=== PATIENT | male | born 1955 | race Caucasian/White ===

== ENCOUNTER 2017-07-05 17:08 | Inpatient (IN) | payer MEDICAID, OTHER ==
[2017-07-05] MEDS ORDERED: NS 0.9% 1000 ML*IV.FLUID IV ONE (17:19)
[2017-07-05] MEDS ORDERED: metroNIDAZOLE IV 500 MG/100ML* 500 MG/100 ML BAG IVPB ONE (17:19)
[2017-07-05] MEDS ORDERED: Cefepime(*) 2 GM in NS 0.9% 50 ML* 50 ML IVPB ONE (17:19)
[2017-07-05 17:47] LABS: Add Diff/Slide Review? Slide Review Added; Comments Flag Yes; Hematocrit 39 % (42-52); Hemoglobin 11.8 g/dl (14.0-18.0); Mean Corpuscular HGB Conc 31 g/dl (31-36); Mean Corpuscular Hemoglobin 27 pg (27-31); Mean Corpuscular Volume 87 fL (80-94); Mean Platelet Volume 9 um3 (7.4-10.4); Red Blood Count 4.45 10^6/ul (4.0-5.4); Red Cell Distribution Width 21 % (10.5-15); White Blood Count 14.9 10^3/ul (3.5-10.8)
[2017-07-05] MEDS ORDERED: Vancomycin(*) 1,000 MG VIAL IVPB SCH (18:00)
[2017-07-05 18:01] LABS: Immature Granulocytes 16 % (0-9); Macrocytosis 1+; Microcytosis 1+; Neutrophil % 74 % (38-83); Polychromasia 1+
[2017-07-05 18:03] LABS: ALT 24 U/L (7-52); AST 57 U/L (13-39); Albumin 2.6 g/dL (3.2-5.2); Alkaline Phosphatase 110 U/L (34-104); BUN/Creatinine Ratio 30.9 (8-20); Blood Urea Nitrogen 47 mg/dL (6-24); CO2 Carbon Dioxide 24 mmol/L (22-32); Calcium 8.6 mg/dL (8.6-10.3); Chloride 107 mmol/L (101-111); EGFR African American 59.7 (>60); EGFR Non-African American 46.4 (>60); Globulin 4.3 g/dL (2-4); Glucose 128 mg/dL (70-100); Sodium 140 mmol/L (133-145); Total Protein 6.9 g/dL (6.4-8.9)
[2017-07-05 18:04] LABS: Anion Gap 9 mmol/L (2-11); Potassium 6.1 mmol/L (3.5-5.0)
[2017-07-05 18:05] LABS: Troponin I 0.42 ng/mL (<0.04)
[2017-07-05] MEDS ORDERED: Dextrose 50% Syringe 50 ML* 25 GM/50 ML SYRINGE IV PUSH ONE (18:09)
[2017-07-05] MEDS ORDERED: Insulin REGULAR(*) 1 UNITS UNIT IV PUSH ONE (18:09)
[2017-07-05] MEDS ORDERED: Calcium Gluconate INJ* 1 GM in NS 0.9% 100 ML* 100 ML IVPB ONE (18:09)
[2017-07-05] MEDS ORDERED: fentaNYL* 50 MCG/ML 2 ML VIAL (100 MCG VIAL) IV SLOW PU ONE (18:24)
[2017-07-05 18:27] LABS: Erythrocyte Sed Rate 60 mm/Hr (0-20)
--- NOTE | 2017-07-05 19:06 | RAD ---
INDICATION: Sepsis COMPARISON: None TECHNIQUE: An AP portable view obtained at 1846 hours is submitted. FINDINGS: Bones/Soft Tissues: There are no acute bony findings. Cardiomediastinal: The cardiomediastinal silhouette is normal. There is no mediastinal shift. Lungs: There are no infiltrates. There is approximately a 20% right-sided pneumothorax Pleura: There are no pleural effusions. Other: None IMPRESSION: RIGHT-SIDED PNEUMOTHORAX.
[2017-07-05] MEDS ORDERED: Acetaminophen TAB* 325 MG PO PRN ×2 (19:34→23:33)
[2017-07-05] MEDS ORDERED: Ondansetron INJ* 2 MG/ML VIAL IV PRN (19:34)
[2017-07-05] MEDS ORDERED: Sodium Polystyrene ORAL.SOL* 15 GM/60 ML BTL PO ONE (19:36)
[2017-07-05 20:00] LABS: Creatine Kinase 275 U/L (10-223)
[2017-07-05] MEDS ORDERED: Vancomycin(*) 1,000 MG - ED ONCE IVPB ONE ×2 (20:00)
[2017-07-05] MEDS ORDERED: Vancomycin per Pharmacy* NOTE FOLLOW UP SCH (20:00)
[2017-07-05 23:22] LABS: Urine Bacteria Absent (Absent); Urine Bilirubin Negative (Negative); Urine Glucose 1+(50 mg/dL) (Negative); Urine Nitrite Negative (Negative)
[2017-07-05] MEDS ORDERED: Thiamine IV* 100 MG/ML 2 ML VIAL IM ONE (23:33)
[2017-07-06] MEDS: Heparin VIAL(*) 5000 UNITS/ML VIAL (FIVE THOUSAND) SUBCUT SCH ×4 (00:07→22:16)
[2017-07-06] MEDS: NS 0.9% 1000 ML* 1,000 ML IV SCH ×2 (00:07→09:22)
[2017-07-06 00:15] LABS: Alcohol < 10 mg/dL (<10); Prealbumin < 3 mg/dL (18-38)
[2017-07-06 00:28] LABS: Benzodiazepine Urine Screen None Detected (None Detect)
[2017-07-06 00:30] LABS: TSH (Thyroid Stimulating Horm) 1.83 mcIU/mL (0.34-5.60)
--- NOTE | 2017-07-06 02:36 | HP ---
HOSPITAL MEDICINE HISTORY AND PHYSICAL: DATE OF ADMISSION: 07/05/17 PRIMARY CARE PHYSICIAN: None. ATTENDING PHYSICIAN: Jessica Raymond MD * (dictation provided by Nichole Moses NP) CHIEF COMPLAINT: Found slumped in chair. HISTORY OF PRESENT ILLNESS: Mr. Lion is a 62-year-old male who has no apparent past medical history who presents today to the hospital from home when found slumped over in his chair by a friend. Mr. Lion is alert. He appears oriented. He states that he has been a long-term alcoholic and he drinks 4 to 5 , 24-ounce beers per day. He reports being fairly heavy smoker during his life. He lives alone in apartment in [place]. He reports being unemployed, but previously working cleaning floors, etc. The patient has no acute complaint at this point and has no report of any problem at home. Per his report, he was just sitting in his chair because he was resting. It seems that his friend thought he could have been sitting in the chair for at least 3 days. When I asked the patient about his past medical history, he states his problem is his legs. He thinks his legs have been causing him problem for about 11 months. He states that "they told me to keep them clean," but when I asked why he has issues with his legs, he states "I don't know. I think they did this to me." He is unable to offer primary care physician. He does not have any family, but states he has 1 friend, Sky Bone who would be his healthcare proxy. In the emergency room, Mr. Lion had multiple abnormalities. He had extensive leg wounds to bilateral lower extremities all of which were covered with maggots. He has leukocytosis with white blood cell count of 14.9. He has a bandemia with bands of 16. His ESR is 60. His CRP is 128.20. He is afebrile. He is mildly tachycardic, mildly tachypneic, blood pressure is running 120/ 77. The patient has hyperkalemia with a potassium of 6.1. He has BUN of 47, creatinine 1.52, and glucose 128. Lactic acid 3.3. He has mildly elevated LFTs. His troponin is 0.42. His BNP is 5150. He has a chest x-ray, which shows a small right-sided pneumo. He is not hypoxic and is currently on room air. PAST MEDICAL HISTORY: 1. Alcohol abuse. 2. Nicotine use. MEDICATIONS: None. FAMILY HISTORY: The patient reports his mom and dad both are related to cancer. SOCIAL HISTORY: The patient is a continued smoker. He smoked for 47 years. He states he smokes much less than 1 pack per day now. He drinks beer daily about 4 to 5, 24-ounce cans per day. He smokes pot occasionally, but there is no report of other illicit drug use. He lives alone. He states his friend, Sky Bone would be his healthcare proxy. REVIEW OF SYSTEMS: Constitutional: No fevers, no chills. He does not report any unintended weight loss despite how cachectic he is. Cardiac: No chest pain. No edema. Respiratory: No cough, no hemoptysis, no shortness of breath. GI: No nausea, vomiting. Positive for intermittent diarrhea. No abdominal pain. : No gross hematuria or dysuria. Neuro: No focal weakness or sensory loss. Eyes: No visual complaints. ENT: No dysphagia. Musculoskeletal: No arthralgias or myalgias. Skin: Positive for rashes or lesions as per above. Psych: No report of depression or anxiety. PHYSICAL EXAMINATION GENERAL: Mr. Lion is sitting up in the bed. He appears in no acute distress. Actually, he is calm and cooperative to my examination. VITAL SIGNS: Temperature 97.6, pulse rate 114, respiratory rate 25, O2 saturation 100% on room air, blood pressure 120/77. LUNGS: Show rales bilaterally in the bases. No accessory muscle use and good aeration. HEART: S1, S2. No murmur, rub, or gallop and regular. ABDOMEN: Soft, nontender with bowel sounds positive x4. NEURO: He is alert. He is oriented x3. He has good movement in upper extremities. He has some limited range of motion while lying in the bed for his bilateral lower extremities secondary to pain and heaviness in the legs, but I cannot appreciate any focal deficits. His pupils are equal and reactive. His extraocular movements are intact. EXTREMITIES: Pulses not palpable but extremities are warm bilaterally. SKIN: The patient has multiple large deep ulcerations to bilateral lower extremities. The right lower extremity seems to be worse than the left. There is extensive maggots and flying insects around the wound. It is erythematous. LABORATORY DATA/DIAGNOSTIC STUDIES: Sodium 140, potassium 6.1, chloride 107, serum bicarbonate 24, BUN 47, creatinine 1.52, glucose 128. Lactic acid 3.3. Total bilirubin 2.6. Troponin 0.42. CRP 128.20. BNP 5150. INR 1.29, PTT 25.2 , fibrinogen 446. WBC 14.9, hemoglobin 11.8, hematocrit 39, platelet count 217 , bands 16. Chest x-ray shows right-sided pneumothorax. ASSESSMENT: Mr. Lion is a 62-year-old male with no known past medical history who presents today from home after being found slumped over in his chair with multiple problems including extensive bilateral lower extremity wounds likely secondary to poor vascular flow, sepsis, elevated troponin, pneumothorax and potential CHF. Our plans are for full admission to the hospital with expected length of stay would be greater than 2 days for the followin. Sepsis. The patient is likely septic from his bilateral lower extremity wounds. We plan to treat with cefepime and vancomycin. He has received 30 mL/ kg of IV fluids in the emergency room. His lactic acid is 3.3. We will be checking it appropriately in the next couple of hours. Blood cultures have been sent. 2. Bilateral lower extremity wounds. The patient has maggot covered wounds to both legs. Efforts have been started in the emergency room to clean those and we will need to continue through the night. Wound Care has been consulted. Surgery has been consulted regarding the patient's pneumothorax. They will be seeing the patient in consultation tomorrow and they can take a look at his legs at that point. I suspect that he has very poor blood flow to the legs and may ultimately need amputation. 3. Elevated troponin. The patient denies any pain at this point. Plan to repeat troponins x2. He will be monitored on the telemetry unit. He will go for a transthoracic echocardiogram tomorrow. 4. Hyperkalemia. Plan to prescribe Kayexalate now. He will be monitored on the telemetry unit. We will recheck in the a.m. 5. Elevated BUN and creatinine. The patient has unknown baseline. They are slightly elevated at 47 and 1.52 respectively. Plan to hydrate and recheck in a.m. I have added on urine FENa test. 6. Elevated LFTs. I suspect this is secondary to chronic alcoholism. I have added on LFTs for the a.m. 7. Question CHF. The patient has BNP of 5150. He does not appear to have CHF on exam. He is quite cachectic and does not have pulmonary edema on chest x- ray. Plan to check a transthoracic echocardiogram in the a.m. 8. Pneumothorax. The patient has a small pneumothorax noted on chest x-ray. I suspect this is likely secondary to ruptured bleb. The patient is not hypoxic on room air. He is complaining of no chest pain. I reviewed the case with Dr. Agosto. He has asked that we order another chest x-ray for the a.m. and follow up and that he will be seeing tomorrow. If he did develop any shortness of breath, etc., we would need to consider placing a chest tube or decompressing. 9. DVT prophylaxis with heparin subcu. 10. Disposition to the intensive care unit. TIME SPENT: Approximately 60 minutes was spent on the admission of this patient , more than half the time was spent with the patient at the bedside reviewing the events leading up to this hospitalization, performing the physical examination, and reviewing the plan of care. NICHOLE MOSES NP [id number]/[facility] #: [id number] ELIANA
[2017-07-06] MEDS ORDERED: Adenosine* 3 MG/ML VIAL ONE ×2 (03:50→03:55)
[2017-07-06] MEDS ORDERED: Succinylcholine* 20 MG/ML 10 ML VIAL ONE (04:04)
[2017-07-06] MEDS ORDERED: Etomidate* 2 MG/ML 20 ML VIAL (40 MG) ONE (04:09)
[2017-07-06] MEDS ORDERED: Diltiazem IV VIAL* 125 MG/25 ML VIAL ONE (04:10)
[2017-07-06] MEDS ORDERED: Propofol* 100 ML ONE (04:11)
--- NOTE | 2017-07-06 04:23 | PN ---
Progress Note - Progress Note Date of Service: 07/06/17 Note: Patient seen and examined with Nichole Moses NP. Agree with assessment and plan. In short, 62 yr old with PMHx of alcohol abuse who presented after being found unresponsive. Sepsis from lower ext wounds which also have maggots within the wounds. Hyperkalemia, renal failure, bumped troponin and lactic acidosis. Malnourished with severe protein calorie malnutrition. Patient in the ICU, IVFs with broad spectrum Abx.. Around 4 AM - was paged for SVT - no response with 6 mg and 12 mg of adenosine, patient then started gasping and became hypoxic. Was promptly intubated and sedated on propofol. Labs ordered as well as CXR. Social work. HR improved once intubated Dr. Li notified. Social work consulted to obtain HCP, Friend Sky Fofana contact info.
[2017-07-06 04:50] LABS: Hematocrit 25 % (42-52); Hemoglobin 7.7 g/dl (14.0-18.0); Mean Corpuscular HGB Conc 31 g/dl (31-36); Mean Corpuscular Hemoglobin 28 pg (27-31); Mean Corpuscular Volume 91 fL (80-94); Mean Platelet Volume 9 um3 (7.4-10.4); Red Blood Count 2.78 10^6/ul (4.0-5.4); Red Cell Distribution Width 21 % (10.5-15); White Blood Count 8.4 10^3/ul (3.5-10.8)
[2017-07-06 04:56] LABS: Add Diff/Slide Review? Slide Review Added; Comments Flag Yes
[2017-07-06 04:57] LABS: FIO2 100; Resp Rate 16
[2017-07-06 04:59] LABS: PCO2 Arterial 53 mmHg (35-45)
[2017-07-06] MEDS ORDERED: NS 0.9% 1000 ML* 1,000 ML IV ONE (05:02)
[2017-07-06 05:03] LABS: ALT 5 U/L (7-52); AST 16 U/L (13-39); Alkaline Phosphatase 22 U/L (34-104); Blood Urea Nitrogen 13 mg/dL (6-24); EGFR African American 619.8 (>60); Total Protein < 3.0 g/dL (6.4-8.9)
[2017-07-06 05:22] LABS: Troponin I 0.19 ng/mL (<0.04)
[2017-07-06] MEDS ORDERED: Metoprolol Tartrate IV* 1 MG/ML 5 ML VIAL ONE (05:34)
[2017-07-06] MEDS ORDERED: Sodium Bicarbonate 8.4% IV* 50 ML VIAL IV ONE (06:16)
[2017-07-06] MEDS ORDERED: NS 0.9% 1000 ML* 2,000 ML IV ONE ×2 (06:20)
[2017-07-06] MEDS ORDERED: Cefepime(*) 1 GM in NS 0.9% 50 ML* 50 ML IVPB SCH (06:30)
[2017-07-06] MEDS ORDERED: Cefepime 1 GM in Dextrose(*) 1 GM/50 ML BAG IV SCH (06:30)
[2017-07-06] MEDS ORDERED: fentaNYL* 50 MCG/ML 2 ML VIAL (100 MCG VIAL) IV ONE (07:15)
[2017-07-06] MEDS ORDERED: fentaNYL* 50 MCG/ML 2 ML VIAL (100 MCG VIAL) ONE (07:16)
--- NOTE | 2017-07-06 08:24 | RAD ---
Indication: Respiratory failure. Single frontal view of the chest performed at 0423 hours was reviewed. Comparison is made with previous exam dated July 05, 2017. Increasing size of right pneumothorax. Left lung field is clear. Cardiomegaly is noted. ET tube and nasogastric tube is in place. IMPRESSION: ENDOTRACHEAL TUBE IN APPROPRIATE LOCATION. INCREASING RIGHT-SIDED PNEUMOTHORAX.
--- NOTE | 2017-07-06 08:29 | RAD ---
INDICATION: Status post chest tube insertion COMPARISON: Chest x-ray July 05, 2017 TECHNIQUE: Single AP portable view of the chest was obtained. FINDINGS: Image quality is compromised due to the relative inferiority of a portable chest x-ray. The endotracheal tube tip terminates 4.2 cm above the scott. The gastric tube terminates below the level the diaphragm presumably overlying the gastric fundus. There is a small bore right-sided chest tube. The pneumothorax seen on the previous chest x-ray is not visible now. There is mild patchy density overlying the bilateral lungs and bilateral costophrenic angle blunting. IMPRESSION: 1. Appropriately positioned lines and tubes. 2. No visible pneumothorax status post small bore chest tube placement. 3. Patchy parenchymal densities are nonspecific that could be seen in the setting of pneumonia, pulmonary edema or adenitis.
[2017-07-06] MEDS ORDERED: Vancomycin(*) 1,000 MG in NS 0.9% 250 ML* 250 ML IVPB SCH (08:30)
[2017-07-06 08:31] LABS: Albumin 1.8 g/dL (3.2-5.2); BUN/Creatinine Ratio 35.2 (8-20); Calcium 6.6 mg/dL (8.6-10.3); EGFR African American 88.5 (>60); EGFR Non-African American 68.8 (>60); Globulin 2.9 g/dL (2-4); Potassium 3.3 mmol/L (3.5-5.0); Total Bilirubin 1.3 mg/dL (0.2-1.0); Total Protein 4.7 g/dL (6.4-8.9)
[2017-07-06] MEDS ORDERED: Perflutren Lipid Microsphere* 3 ML VIAL ONE (08:33)
--- NOTE | 2017-07-06 10:00 | ECHO ---
Patient: KAYCEE CORONEL [facility] Rec#: [id number] : 1955 Date: 07/06/2017 Age: 62y Height: 172.72 cm / 68.0 in Weight: 72.57 kg / 159.9 lbs Sex: M BSA: 1.86 Room#: ICU2 Admit Date#: 07/05/2017 Type: Inpatient Referring: Nichole Moses NP Reading: Chris Banks MD Crm Manager: Jennifer Baer [facility] Transthoracic Echocardiogram Indication: Elevated Troponins/Sepsis BP: 136/88 HR: 83 Rhythm: NSR Findings History: ETOH abuse,smoker, extensive leg wounds with maggot infectation. Currently sedated, intubated and mechanically ventilated. Technical Comments: The study is technically limited due to the patient's smoking history. Completed at 0930. The study is technically limited due to patient being intubated and on a ventilator. Left Ventricle: The left ventricular chamber size is normal. There is severely decreased left ventricular systolic function. The estimated ejection fraction is less than 20%. The assessment of diastolic function is non-diagnostic. The patient was unable to perform a Valsalva maneuver. Left Atrium: The left atrium is mildly dilated. Right Ventricle: Moderator Band present. The right ventricular cavity size is normal. The right ventricular global systolic function is moderately reduced. Right Atrium: The right atrium is mild to moderately dilated. Aortic Valve: The aortic valve is trileaflet. The aortic valve leaflets are mildly thickened. Systolic excursion of the aortic valve cusps is reduced. There is moderate aortic stenosis.The degree of may be underestimated due to low LV function The highest aortic valve velocity was obtained with the standard probe from the A5C view. Mitral Valve: The mitral valve leaflets appear normal. There is mild mitral regurgitation. There is no evidence of mitral stenosis. Tricuspid Valve: The tricuspid valve leaflets are normal. Unable to estimate the right ventricular systolic pressure. There is evidence that pulmonary hypertension may be underestimated. Pulmonic Valve: The pulmonic valve structure is not well visualized. Pericardium: The pericardium appears normal. Aorta: There is mild dilatation of the ascending aorta. The aortic arch is not well visualized. There is mild dilatation of the aortic root. Pulmonary Artery: The main pulmonary artery is not well visualized. Venous: Unable to accurately comment on the size collapsibility of the IVC as the patient in known to be on mechanical ventilation. Contrast: Definity was used to optimize study. Intravenous contrast was used to enhance endocardial border definition. Conclusions There is severely decreased left ventricular systolic function. The estimated ejection fraction is less than 20%. Severe Global hypokinesis The assessment of diastolic function is non-diagnostic. The right ventricular global systolic function is moderately reduced. Systolic excursion of the aortic valve cusps is reduced. There is moderate aortic stenosis.The degree of may be underestimated due to low LV function There is mild mitral regurgitation. Unable to estimate the right ventricular systolic pressure. The pericardium appears normal. Measurements Name Value Normal Range RVIDd (AP) 2D 2.7 cm (0.9 - 2.6) RVDdMajor (2D) 3.9 cm (2.2 - 4.4) RAd ISD 4CH 6.4 cm (3.4 - 4.9) RA (A4C)W 4.8 cm (2.9 - 4.6) IVSd (2D) 0.7 cm (0.6 - 1) LVPWd (2D) 1.1 cm (0.6 - 1) LVIDd (2D) 4.9 cm (3.6 - 5.4) LVIDs (2D) 4.7 cm - LV FS (2D) 5 % (25 - 45) Aortic Annulus 2.1 cm (1.4 - 2.6) Ao root diameter (2D) 3.7 cm (2.1 - 3.5) Ascending Ao 3.8 cm (2.1 - 3.4) LA dimension (AP) 2D 4.3 cm (2.3 - 3.8) LAd ISD 4CH 6.3 cm (2.9 - 5.3) LA ISD 4CH W 4.7 cm (2.5 - 4.5) Name Value Normal Range LA ESV SP 4CH (A/L) 96 ml - LA ESV SP 2CH (A/L) 66 ml - LA ESV BP (A/L) 80 ml - LA ESV BP (A/L) index 43.13 ml/m2 - LA ESV SP 4CH (MOD) 93 ml - LA ESV SP 2CH (MOD) 62 ml - Name Value Normal Range MV E-wave Vmax 0.9 m/sec - MV deceleration time 110 msec - MV A-wave Vmax 0.5 m/sec - MV E:A ratio 1.79 ratio - LV septal e' Vmax 0.05 m/sec - LV lateral e' Vmax 0.1 m/sec - LV E:e' septal ratio 18 ratio - LV E:e' lateral ratio 9 ratio - Name Value Normal Range AV Vmax 2.4 m/sec - AV VTI 44.2 cm - AV peak gradient 22.68 mmHg - AV mean gradient 12.39 mmHg - LVOT diameter 2 cm - LVOT Vmax 0.6 m/sec - LVOT VTI 12.9 cm - LVOT peak gradient 1.52 mmHg - LVOT mean gradient 0.8 mmHg - SV LVOT 42 ml - SCOOTER (continuity Vmax) 0.8 cm2 - SCOOTER (continuity VTI) 0.9 cm2 -
[2017-07-06 10:01] LABS: Magnesium 1.8 mg/dL (1.9-2.7); Phosphorus 3.4 mg/dL (2.5-5.0)
[2017-07-06] MEDS: Folic Acid TAB* 1 MG PO SCH (10:22)
[2017-07-06] MEDS: Thiamine TAB* 100 MG TAB PO SCH (10:22)
[2017-07-06] MEDS: Multivitamins/Minerals TAB PO SCH (10:22)
[2017-07-06] MEDS: Propofol* 100 ML IV SCH ×2 (10:43→20:21)
--- NOTE | 2017-07-06 12:10 | PN ---
Progress Note - Progress Note Date of Service: 07/06/17 Note: CRITICAL CARE MEDICINE Date: 07/06/17 Time: 1045 SUBJECTIVE: Patient seen and examined. PHYSICAL EXAM: disheveled Vital Signs: Reviewed. Neurologic: on prop, but response to stimuli. HEENT: pupils equal, reactive. Sclera anicteric. Trachea midline. ett in place Cardiovascular: S1 S2 distant Respiratory: distant, coarse, ct in place, no rales Abdomen: Soft, nt. No r/g/r. Extremities: Warm, chronic le wounds, malordorous Access: piv LABS: Reviewed. IMAGING: Reviewed. MEDICATIONS: Reviewed. ASSESSMENT: 62 M Severe sepsis sec to cellulitis Metabolic encephalpathy Spontaneous pneumothorax SVT Acute hypoxic resp failure Severe protein calorie malnutrition Etoh abuse At risk for withdrawal Tobacco abuse PLAN: Neurologic: keep sedated with low dose propofol. suppl vitamins Cardiovascular: Perfusing. Intravascular better and continued IVF today to support interstitial recovery Respiratory: Marlene PCV 15/5. Avoid high pressures to allow ptx to improve. Appreciate surgical ct placement. f/u for water seal later and hopefully can move forward off ppv to help advance removal of ct needs. supportive vent care Gastrointestinal: ogt. sup. tf later. avoid refeeding syndromes. Renal/Metabolic: water deficient and take time to replace as on LR currently, and then to 1/2 NS later. f/u lytes Infectious Disease: Recieved vanco and C4. can de-escalate to C3 for leg penetration, as he does have gram neg in blood, he is non toxic, and mrsa screen neg. Could still be a pseudomonas and may need to adjust abx post cx. Hematology: dilution. will likely have consumption from infection as well as alcohol inhibited marrow. hold off on further transfusions if Hb >7. hsq Endocrine: maintaining, but f/u glu and potential for hormonal dysregulation Musculoskeletal: wound eval and f/u of multiple abn Psych/Social: social work f/u Supportive and preventative care as ordered. Vaccine: f/u needs when consentable. SUP: H2 VTE prophylaxis: heparin Berkowitz catheter given critical illness, monitoring needs for accurate assessment of WALT and KDIGO criteria for critically ill patients and to avoid potential harms of urinary retention, skin breakdown/ulcers. Disposition: ICU Code Status: Full Critical Care Time: 45min Shady Li DO
[2017-07-06] MEDS ORDERED: Magnesium Sulfate 2 GM IV* 2 GM/50 ML BAG IVPB ONE (12:30)
[2017-07-06] MEDS ORDERED: cefTRIAXone(*) 2 GM in NS 0.9% 100 ML* 100 ML IVPB SCH (12:30)
[2017-07-06] MEDS: Chlorhexidine MOUTHWASH 0.12%* 15 ML UDC TOPICAL SCH ×4 (12:43→23:34)
[2017-07-06] MEDS ORDERED: Famotidine SUSP* 40 MG/5 ML ORAL.SYRIN G TUBE ONE (13:00)
[2017-07-06] MEDS: Metoprolol Tartrate TAB* 25 MG G TUBE SCH ×2 (14:07→22:16)
[2017-07-06] MEDS ORDERED: Zosyn per Pharmacy* NOTE FOLLOW UP PRN (15:23)
[2017-07-06] MEDS ORDERED: Zosyn 3.375 gm X 1 dose, then dose per Pharmacy IVPB ONE ×2 (15:30)
--- NOTE | 2017-07-06 18:58 | CONS ---
CONSULTATION REPORT: DATE OF CONSULT: 07/06/17 REFERRING PROVIDER: Jessica Raymond DO, hospitalist and Nichole Moses NP REASON FOR CONSULTATION: Right pneumothorax. HISTORY OF PRESENT ILLNESS: Mr. Sky Lion is a 62-year-old gentleman with an unknown past medical history who was found slumped over his chair by a friend. He was somewhat obtunded, but became oriented. Apparently, he is a long-term alcoholic, drinking daily and a heavy smoker and lives alone in [place]. The history is obtained from the history and physical as the patient is now intubated. Apparently, he has had weakness and he was noted to have lower leg wounds with a leukocytosis. He was noted to be somewhat tachypneic and tachycardic and hyperkalemic. He had an elevated BUN and creatinine and a BNP of 5150. A chest x-ray done during a routine workup showed a small right-sided pneumothorax and surgical consultation was obtained last night. PAST MEDICAL HISTORY: 1. Alcohol abuse. 2. Nicotine abuse. MEDICATIONS: None. SOCIAL HISTORY: Socially, per the chart, he is a continued smoker. He is a heavy drinker. He lives alone. PHYSICAL EXAM: He is a slender, cachectic male, sedated on the ventilator. Trachea was midline. He has some slightly diminished breath sounds on the right side. The left side is clear. There is no crepitus, rib deformity. Heart was a regular rate and rhythm, slightly rapid. Abdomen is soft and nondistended. A chest x-ray done from last night shows a small apical right pneumothorax with some bibasilar component to it. There is no midline shift. I discussed this finding on the telephone last night with Nichole Moses and was felt that he was awake and alert, saturating well with no complaints of chest pain that this would be observed with a repeat followup chest x-ray in the morning and that would be increased in size or developed symptoms, would require a chest tube insertion. However, apparently earlier this morning, he developed some SVT, requiring further resuscitation and became somewhat obtunded and he became unresponsive, requiring resuscitation and subsequent intubation. Postprocedural intubation chest x-ray showed the pneumothorax to be larger on the right. He remains hemodynamically stable, saturating well and has now been sedated on propofol. IMPRESSION: Right-sided pneumothorax. This apparently appears to be spontaneous with no recent history or obvious source of trauma. He is now intubated and positive pressure ventilation with an increase in size in the pneumothorax. This will require a chest decompression with a pneumothorax catheter. I am unable to obtain consent from the patient due to his intubated status and there is no family or close relative nearby and due to the urgency of the procedure, I will proceed without written informed consent. Please see separate dictated procedural report. Thank you for the consultation. We will follow him closely with you. [id number]/[facility] #: [id number] ELIANA
[2017-07-06] MEDS: ZOSYN 3.375 GM Q8H per EXTENDED INFUSION IVPB SCH ×2 (19:43)
[2017-07-06] MEDS ORDERED: NS 0.45% KCl 20 Meq 1000 ML* 1,000 ML IV SCH (20:00)
--- NOTE | 2017-07-07 | OP ---
DATE OF OPERATION: 07/06/17 - ROOM #ICU-02 DATE OF : 51 SURGEON: Mike Agosto MD. ANESTHESIA: 1% plain lidocaine and intravenous sedation administered in the intensive care unit with the patient on the ventilator. PRE-OP DIAGNOSIS: Right pneumothorax. POST-OP DIAGNOSIS: Right pneumothorax. OPERATIVE PROCEDURE: Insertion of percutaneous 8-Serbian right pneumothorax catheter. ESTIMATED BLOOD LOSS: Minimal. COMPLICATIONS: None. WOUND CLASSIFICATION: 1. BRIEF HISTORY: Mr. Sky Lion is a 62-year-old gentleman who was admitted through the emergency room with multiple medical issues, including a small pneumothorax on presentation. This was asymptomatic and was elected to be observed. However, he has required intubation early this morning due to cardiac arrhythmias and a post-intubation chest x-ray shows an enlargement in the right pneumothorax. A chest tube is now to be inserted. The patient has been intubated and now sedated. There is no close family member present and due to the urgency of the procedure, written informed consent was not obtained as it was felt that this would delay a life preserving procedure and care. DESCRIPTION OF PROCEDURE: The patient was placed in the supine position. He was on the ventilator already under intravenous sedation. The right anterior chest was prepped and draped in the usual sterile fashion. The site was marked with indelible ink. A time-out verification was completed. There was no written informed consent obtained. An area in the midclavicular line in the right on the overlying probable second rib was identified. 1% lidocaine was infiltrated down to the rib and passing a needle over the rib space, there was air that was aspirated. A small sergio with a 11-blade was placed in the skin and the 8-Serbian pneumothorax catheter was inserted percutaneously without difficulty into the thoracic cavity. The catheter was placed to Pleur-evac suction. The catheter was secured to the skin with two separate 2-0 silk sutures. An occlusive Vaseline gauze dressing was placed to secure the tube. A postprocedural chest x-ray showed the catheter to be in good position with the lung expanded and resolution of the pneumothorax. There appeared to be a slight air leak on the Pleur-evac canister itself. The patient tolerated the procedure well. [id number]/[facility] #: [id number] [facility]
[2017-07-07] MEDS ORDERED: NS 0.45% KCl 20 Meq 1000 ML* 1,000 ML IV SCH (01:05)
[2017-07-07] MEDS: Chlorhexidine MOUTHWASH 0.12%* 15 ML UDC TOPICAL SCH ×5 (03:00→19:32)
[2017-07-07] MEDS: Propofol* 100 ML IV SCH (03:01)
[2017-07-07] MEDS: ZOSYN 3.375 GM Q8H per EXTENDED INFUSION IVPB SCH ×4 (04:25→12:07)
[2017-07-07 05:48] LABS: Hematocrit 28 % (42-52); Hemoglobin 8.8 g/dl (14.0-18.0); Mean Corpuscular HGB Conc 32 g/dl (31-36); Mean Corpuscular Hemoglobin 28 pg (27-31); Mean Corpuscular Volume 88 fL (80-94); Mean Platelet Volume 9 um3 (7.4-10.4); Red Blood Count 3.16 10^6/ul (4.0-5.4); Red Cell Distribution Width 20 % (10.5-15); White Blood Count 8.7 10^3/ul (3.5-10.8)
[2017-07-07 06:03] LABS: ALT 16 U/L (7-52); Alkaline Phosphatase 66 U/L (34-104); BUN/Creatinine Ratio 32.3 (8-20); Blood Urea Nitrogen 30 mg/dL (6-24); CO2 Carbon Dioxide 16 mmol/L (22-32); EGFR African American 105.2 (>60); EGFR Non-African American 81.8 (>60); Glucose 114 mg/dL (70-100); Phosphorus 2.7 mg/dL (2.5-5.0); Sodium 132 mmol/L (133-145); Total Protein 4.1 g/dL (6.4-8.9)
[2017-07-07] MEDS: Heparin VIAL(*) 5000 UNITS/ML VIAL (FIVE THOUSAND) SUBCUT SCH ×3 (06:06→22:54)
[2017-07-07 06:09] LABS: Add Diff/Slide Review? Manual Diff Added; Comments Flag Yes
[2017-07-07 06:37] LABS: Calcium 5.9 mg/dL (8.6-10.3)
[2017-07-07 06:41] LABS: Chloride 115 mmol/L (101-111)
[2017-07-07] MEDS ORDERED: Vancomycin Trough Check NOTE FOLLOW UP ONE (08:00)
[2017-07-07 08:06] LABS: Albumin 1.4 g/dL (3.2-5.2); Globulin 2.7 g/dL (2-4)
--- NOTE | 2017-07-07 08:08 | RAD ---
INDICATION: Right-sided pneumothorax COMPARISON: Most recent comparison chest x-ray July 06, 2017 TECHNIQUE: Single AP portable view of the chest was obtained. FINDINGS: Image quality is compromised due to the relative inferiority of a portable chest x-ray. Previously described lines and tubes are unchanged in the previous chest x-ray and remain appropriately positioned. There is a mild degree of cardiomegaly and calcified atherosclerosis overlying the arch of the aorta. There is patchy density overlying the right lung with obscuration of the right costophrenic angle. Visualized bones are normal for the patient's age. IMPRESSION: Worsening patchy density overlying the right lung and blunting of the right costophrenic angle could be seen with worsening pulmonary edema and/or small pleural effusion. Lines and tubes remain unchanged and appropriately positioned from the previous chest x-ray.
[2017-07-07 08:10] LABS: Immature Granulocytes 2 % (0-9); Myelocytes % 1 % (0-1); Neutrophil % 94 % (38-83)
[2017-07-07 08:12] LABS: Polychromasia 1+
[2017-07-07 08:15] LABS: Add Path Review? YES
[2017-07-07 08:48] LABS: Magnesium 2.3 mg/dL (1.9-2.7)
[2017-07-07] MEDS ORDERED: Famotidine SUSP* 40 MG/5 ML ORAL.SYRIN G TUBE SCH (09:00)
[2017-07-07] MEDS: KCL 20 MEQ/100 ML IVPREMIX* 20 MEQ/100 ML BAG IV SCH ×2 (10:39→13:01)
[2017-07-07] MEDS: Thiamine TAB* 100 MG TAB PO SCH (10:40)
[2017-07-07] MEDS: Metoprolol Tartrate TAB* 25 MG G TUBE SCH ×2 (10:40→20:48)
[2017-07-07] MEDS: Folic Acid TAB* 1 MG PO SCH (10:40)
[2017-07-07] MEDS: Multivitamins/Minerals TAB PO SCH (10:40)
--- NOTE | 2017-07-07 11:32 | PN ---
Progress Note - Progress Note Date of Service: 07/07/17 Note: CRITICAL CARE MEDICINE Date: 07/07/17 Time: 850 SUBJECTIVE: Patient seen and examined. PHYSICAL EXAM: Vital Signs: Reviewed. Neurologic: on prop, but able to communicate HEENT: pupils equal, reactive. Sclera anicteric. Trachea midline. ett in place Cardiovascular: S1 S2 distant Respiratory: distant, coarse, ct in place; no leak; cpap 10/5 Abdomen: Soft, nt. No r/g/r. Extremities: Warm, chronic le wounds, malodorous now better post betadine and wraps LABS: Reviewed. IMAGING: Reviewed. MEDICATIONS: Reviewed. ASSESSMENT: 62 M Severe sepsis sec to proteus uti, & cellulitis Metabolic encephalpathy Spontaneous pneumothorax SVT Acute hypoxic resp failure Severe protein calorie malnutrition Etoh abuse At risk for withdrawal Tobacco abuse PLAN: Neurologic: hold propofol. suppl vitamins Cardiovascular: Perfusing. off ivf. allow him to mobilize fluid as with his hypoalbuminemia he has increased interstial fluid and lung water on cxr too. Respiratory: Marlene cpap 10/5. mobilize fluid. liberate from vent. water seal ct today. when off ppv and stable for another day may be able to dc. Gastrointestinal: ogt dc. sup. will need supplements Renal/Metabolic: f/u derangements and repletions Infectious Disease: adjusted to zosyn with mutifactorial components, with proteus primary and concomitant enterococcus. Hematology: stabilized. suppl prn. Endocrine: holding Musculoskeletal: wound eval appreciated and f/u chronic needs Psych/Social: social work f/u Supportive and preventative care as ordered. Vaccine: f/u needs SUP: H2 VTE prophylaxis: heparin Berkowitz catheter given critical illness, monitoring needs for accurate assessment of WALT and KDIGO criteria for critically ill patients and to avoid potential harms of urinary retention, skin breakdown/ulcers. Disposition: ICU Code Status: Full Critical Care Time: 35min Shady Li DO
[2017-07-07] MEDS ORDERED: LORazepam INJ* 2 MG/ML 1 ML VIAL IV PUSH PRN (12:25)
[2017-07-07] MEDS ORDERED: Nicotine Inhaler* 10 MG AMP INH PRN (12:25)
[2017-07-07] MEDS ORDERED: Mouth Piece, Nicotine* 1 EACH CARTRIDGE INH PRN (12:30)
[2017-07-07] MEDS: Piperacillin/Tazobac ADVAN(*) 3.375 GM in D5W 100 ML BAG* 100 ML IVPB SCH (20:48)
[2017-07-07] MEDS: NS 0.9% w/ 20 Meq KCL 1000 ML* 1,000 ML IV SCH (22:54)
[2017-07-08] MEDS: Piperacillin/Tazobac ADVAN(*) 3.375 GM in D5W 100 ML BAG* 100 ML IVPB SCH ×2 (04:08→11:57)
[2017-07-08] MEDS ORDERED: Metoprolol Tartrate TAB* 25 MG PO SCH (04:31)
[2017-07-08] MEDS: Heparin VIAL(*) 5000 UNITS/ML VIAL (FIVE THOUSAND) SUBCUT SCH ×3 (06:11→22:02)
[2017-07-08 06:30] LABS: Hematocrit 35 % (42-52); Mean Corpuscular HGB Conc 31 g/dl (31-36); Mean Corpuscular Hemoglobin 27 pg (27-31); Mean Corpuscular Volume 85 fL (80-94); Mean Platelet Volume 9 um3 (7.4-10.4); Red Blood Count 4.12 10^6/ul (4.0-5.4); Red Cell Distribution Width 20 % (10.5-15); White Blood Count 12.9 10^3/ul (3.5-10.8)
[2017-07-08] MEDS: NS 0.9% w/ 20 Meq KCL 1000 ML* 1,000 ML IV SCH (06:41)
[2017-07-08 06:44] LABS: BUN/Creatinine Ratio 25.9 (8-20); Calcium 7.5 mg/dL (8.6-10.3); EGFR African American 88.5 (>60); EGFR Non-African American 68.8 (>60); Potassium 3.6 mmol/L (3.5-5.0)
[2017-07-08 07:05] LABS: Add Diff/Slide Review? Slide Review Added; Comments Flag Yes
[2017-07-08] MEDS: Folic Acid TAB* 1 MG PO SCH (08:22)
[2017-07-08] MEDS: Multivitamins/Minerals TAB PO SCH (08:23)
[2017-07-08] MEDS: Thiamine TAB* 100 MG TAB PO SCH (08:23)
[2017-07-08] MEDS: Famotidine TAB* 20 MG PO SCH (08:23)
[2017-07-08] MEDS ORDERED: Metoprolol Tartrate TAB* 25 MG PO ONE (10:04)
[2017-07-08] MEDS ORDERED: Furosemide IV* 10 MG/ML VIAL (40 MG) IV SLOW PU ONE (10:15)
--- NOTE | 2017-07-08 10:46 | RAD ---
Indication: Follow-up pneumothorax on the right. Single frontal view of the chest performed at 0940 hours was reviewed. Comparison is made with previous exam dated July 07, 2017. Cardiomegaly present. Right pleural effusion is noted. Right chest tube is in place. No significant pneumothorax is noted. Endotracheal tube has been removed. IMPRESSION: NO PNEUMOTHORAX IS NOTED. RIGHT PLEURAL EFFUSION IS NOTED. ENDOTRACHEAL TUBE HAS BEEN REMOVED.
--- NOTE | 2017-07-08 11:21 | PN ---
Progress Note - Progress Note Date of Service: 07/08/17 Note: CRITICAL CARE MEDICINE Date: 07/08/17 Time: 900 SUBJECTIVE: Patient seen and examined. PHYSICAL EXAM: Vital Signs: Reviewed. Neurologic: stable. HEENT: pupils equal, reactive. Sclera anicteric. Cardiovascular: S1 S2 distant Respiratory: distant, coarse, RA, ct intact, no leak Abdomen: Soft, nt. No r/g/r. Extremities: Warm, chronic le wounds, wraps LABS: Reviewed. IMAGING: Reviewed. MEDICATIONS: Reviewed. ASSESSMENT: 62 M Severe sepsis sec to proteus uti, & cellulitis Metabolic encephalpathy Spontaneous pneumothorax SVT Acute hypoxic resp failure Severe protein calorie malnutrition Etoh abuse At risk for withdrawal Tobacco abuse PLAN: Neurologic: suppl vitamins. prns Cardiovascular: Perfusing. off ivf and give dose lasix today to mobilize fluid. Respiratory: RA. will dc ct. f/u cxr again in few days perhaps post spot ptx. meeds nutrition and healing. Gastrointestinal: advance po Renal/Metabolic: improved and allow oral equilibration from hypercl Infectious Disease: zosyn with mutifactorial components, with proteus primary and concomitant enterococcus. Hematology: stabilized. suppl prn. Endocrine: stable. Musculoskeletal: wound eval appreciated and f/u chronic needs Psych/Social: social work f/u Supportive and preventative care as ordered. Vaccine: f/u needs SUP: H2 VTE prophylaxis: heparin kayli Berkowitz Disposition: to floor Code Status: Full Critical Care Time: 35min Shady Li DO
[2017-07-08] MEDS ORDERED: Metoprolol Tartrate IV* 1 MG/ML 5 ML VIAL ONE (13:42)
[2017-07-08] MEDS ORDERED: Metoprolol Tartrate IV* 1 MG/ML 5 ML VIAL IV ONE (13:45)
[2017-07-08] MEDS ORDERED: Potassium Chlor TAB* 20 MEQ TAB.ER PO ONE (14:00)
[2017-07-08] MEDS ORDERED: ZOSYN 3.375 GM Q8H per EXTENDED INFUSION IVPB SCH ×6 (20:00→21:16)
[2017-07-08] MEDS ORDERED: KCL 20 MEQ/100 ML IVPREMIX* 20 MEQ/100 ML BAG IV ONE (21:48)
[2017-07-08] MEDS: Metoprolol Tartrate IV* 1 MG/ML 5 ML VIAL IV PRN (22:00)
[2017-07-08] MEDS: Metoprolol Tartrate TAB* 25 MG PO SCH (22:02)
[2017-07-08] MEDS ORDERED: Calcium Gluconate INJ* 1 GM in NS 0.9% 100 ML* 100 ML IVPB ONE (23:00)
[2017-07-09] MEDS ORDERED: Metoprolol Tartrate IV* 1 MG/ML 5 ML VIAL IV ONE (00:04)
[2017-07-09] MEDS: Heparin VIAL(*) 5000 UNITS/ML VIAL (FIVE THOUSAND) SUBCUT SCH ×3 (05:17→21:19)
[2017-07-09] MEDS: ZOSYN 3.375 GM Q8H per EXTENDED INFUSION IVPB SCH ×6 (05:17→21:17)
[2017-07-09 05:50] LABS: Hematocrit 36 % (42-52); Hemoglobin 11.2 g/dl (14.0-18.0); Mean Corpuscular HGB Conc 31 g/dl (31-36); Mean Corpuscular Hemoglobin 27 pg (27-31); Mean Corpuscular Volume 85 fL (80-94); Mean Platelet Volume 8 um3 (7.4-10.4); Red Blood Count 4.19 10^6/ul (4.0-5.4); Red Cell Distribution Width 20 % (10.5-15); White Blood Count 16.8 10^3/ul (3.5-10.8)
[2017-07-09 06:01] LABS: Blood Urea Nitrogen 28 mg/dL (6-24); CO2 Carbon Dioxide 19 mmol/L (22-32); Calcium 8.2 mg/dL (8.6-10.3); EGFR African American 84.9 (>60); Glucose 93 mg/dL (70-100); Magnesium 2.3 mg/dL (1.9-2.7); Sodium 145 mmol/L (133-145)
[2017-07-09 06:43] LABS: Chloride 118 mmol/L (101-111)
[2017-07-09 08:49] LABS: Anion Gap 8 mmol/L (2-11)
[2017-07-09] MEDS: Folic Acid TAB* 1 MG PO SCH (08:55)
[2017-07-09] MEDS: Multivitamins/Minerals TAB PO SCH (08:55)
[2017-07-09] MEDS: Lisinopril TAB* 5 MG PO SCH (08:55)
[2017-07-09] MEDS: Metoprolol Tartrate TAB* 25 MG PO SCH ×2 (08:55→21:19)
[2017-07-09] MEDS: Thiamine TAB* 100 MG TAB PO SCH (08:55)
[2017-07-09] MEDS: Famotidine TAB* 20 MG PO SCH (08:55)
[2017-07-09] MEDS ORDERED: Furosemide IV* 10 MG/ML VIAL (40 MG) IV SLOW PU ONE (10:59)
[2017-07-09] MEDS ORDERED: Morphine INJ* 2 MG/ML 1 ML CARPUJECT IV PRN (12:10)
--- NOTE | 2017-07-09 12:10 | ED ---
Jacob Zendejas Thomas, scribed for Demond Grant MD on 07/05/17 at 1742 . Skin Complaint - HPI Summary HPI Summary: The pt is a 62 y/o M BIBA with open wounds to his LLE that have a significant amount of maggots. The patient denies any pain in his LLE. PMHx includes peripheral vascular disease. He is a current smoker. He lives alone. He was last hospitalized a few months ago at [facility]. - History of Current Complaint Time Seen by Provider: 07/05/17 17:18 Stated Complaint: POSSIBLE SEPSIS Hx Obtained From: Patient Onset/Duration: Still Present Timing: Constant Current Severity: Severe Pain Intensity: 0 Pain Scale Used: 0-10 Numeric Skin Location: Other: - LLE Aggravating Symptom(s): Nothing Alleviating Symptom(s): Nothing Related History: PVD - Allergy/Home Medications Allergies/Adverse Reactions: Allergies Allergy/AdvReac Type Severity Reaction Status Date / Time No Known Allergies Allergy Verified 07/05/17 18:39 Home Medications: Home Medications NK [No Home Medications Reported] 07/05/17 [History Confirmed 07/05/17] PMH/Surg Hx/FS Hx/Imm Hx Previously Healthy: No Endocrine/Hematology History: Denies: Hx Diabetes Cardiovascular History: Reports: Hx Peripheral Vascular Disease - Family History Known Family History: Positive: Other - Patient denies relevant FHx - Social History Occupation: Unemployed Lives: Alone Hx Tobacco Use: Yes Smoking Status (MU): Current Every Day Smoker Review of Systems Negative: Other - LLE pain Positive: Other - open wounds with maggots in LLE All Other Systems Reviewed And Are Negative: Yes Physical Exam - Summary Physical Exam Summary: VITAL SIGNS: Reviewed. GENERAL: Patient is a cachectic male who is lying comfortable in the stretcher. Patient is not in any acute respiratory distress. He has poor hygiene and is unkempt. HEAD AND FACE: No signs of trauma. No ecchymosis, hematomas or skull depressions. No sinus tenderness. EYES: PERRLA, EOMI x 2, No injected conjunctiva, no nystagmus. EARS: Hearing grossly intact. Ear canals and tympanic membranes are within normal limits. MOUTH: Oropharynx within normal limits. NECK: Supple, trachea is midline, no adenopathy, no JVD, no carotid bruit, no c- spine tenderness, neck with full ROM. CHEST: Symmetric, no tenderness at palpation LUNGS: Clear to auscultation bilaterally. No wheezing or crackles. CVS: Regular rate and rhythm, S1 and S2 present, no murmurs or gallops appreciated. ABDOMEN: Soft, non-tender. No signs of distention. No rebound no guarding, and no masses palpated. Bowel sounds are normal. EXTREMITIES: FROM in all major joints, no edema, no cyanosis or clubbing. NEURO: Alert and oriented x 3. No acute neurological deficits. Speech is normal and follows commands. SKIN: There are extensive tunneling wounds in the RLE and LLE, more in the RLE. There is a significant amount of maggots and flies. I cannot assess the depth of the wounds. When I probe the wounds with a Q-tip, the wounds extend three- quarters of the length of the tip into the skin. Triage Information Reviewed: Yes Vital Signs Reviewed: Yes Diagnostics - Laboratory Result Diagrams: 07/05/17 17:35 07/05/17 17:35 Lab Statement: Any lab studies that have been ordered have been reviewed, and results considered in the medical decision making process. - Radiology CXR Radiology Interpretation Completed By: Radiologist - RESULTS PENDING--SEE [facility] - EKG 17:30 Cardiac Rate: Tachycardia EKG Interpretation: [address] depressions in V4, V5, and V6. LBBB. Course/Dx - Course Assessment/Plan: The pt is a 62 y/o M BIBA with open wounds to his LLE that have a significant amount of maggots. The patient denies any pain in his LLE. PMHx includes peripheral vascular disease. He is a current smoker. He lives alone. He was last hospitalized a few months ago at [facility]. Initially, we obtained IV access and placed the patient on the monitor and started IV fluids. The patient has poor hygiene and has a stage II ulcer in the left gluteus. There is a lot of erythema in the lower L-spine. He has multiple wounds with maggots, which we attempted to remove using alcohol, hydrogen peroxide, and water. Since the patient has multiple tunneling, this was difficult; however, we removed as many as we could. There were no pulses in both lower extremities, possibly secondary to peripheral vascular disease, likely peripheral artery disease. Dr. Galloway accepted the patient at this time. I was unable to perform a CT of the legs since the patient has renal failure and hyperkalemia at this time. We will be treating the symptoms, hyperkalemia, and sepsis. Dr. Galloway will further direct the assessment, treatment, and whether or not the patient will need transfer. - Diagnoses Provider Diagnoses: Sepsis, Multiple wounds of lower extremities, PVD (peripheral vascular disease) , Peripheral arterial disease, Hyperkalemia, Increased troponin rule out ACS - Physician Notifications Discussed Care Of Patient With: Amanda Galloway Time Discussed With Above Provider: 18:09 Instructed by Provider To: Other - I consulted with Dr. Galloway, hospitalist, who admits the patient to her services. - Critical Care Time Critical Care Time: 75-104 min Discharge - Discharge Plan Condition: Critical Disposition: ADMITTED TO [facility] Referrals: Miles Tarango MD [Primary Care Provider] - The documentation as recorded by the Jacob noel Thomas accurately reflects the service I personally performed and the decisions made by , Demond Grant MD.
[2017-07-09] MEDS: Morphine INJ* 2 MG/ML 1 ML SYRINGE (TWO MG - NEW SYRINGE VERSION) IV PRN ×3 (12:49→21:44)
[2017-07-09] MEDS: Metoprolol Tartrate IV* 1 MG/ML 5 ML VIAL IV PRN (13:52)
--- NOTE | 2017-07-09 14:28 | PN ---
Subjective Date of Service: 07/09/17 Interval History: HOSPITALIST PROGRESS NOTE Patient seen and examined at bedside. He c/o diffuse body aches, tolerating diet. Family History: Unchanged from Admission Social History: Unchanged from Admission Past Medical History: Unchanged from Admission Objective Active Medications: Acetaminophen (Tylenol Tab*) 650 mg PO Q4H PRN PRN Reason: PAIN Device (Nicotine Mouth Piece*) 1 each INH ONCE PRN PRN Reason: CRAVINGS Famotidine (Pepcid Tab*) 20 mg PO DAILY [facility] Last Admin: 07/09/17 08:55 Dose: 20 mg Folic Acid (Folvite Tab*) 1 mg PO DAILY [facility] Last Admin: 07/09/17 08:55 Dose: 1 mg Heparin Sodium (Porcine) (Heparin Vial(*)) 5,000 units SUBCUT Q8HR [facility] Last Admin: 07/09/17 13:52 Dose: 5,000 units Heparin Sodium (Porcine) (Heparin Flush Picc/Ml/Cvc(*)) 1 - 3 ml FLUSH 0600, 1800 [facility] PRN Reason: Protocol Last Admin: 07/09/17 08:48 Dose: Not Given Piperacillin Sod/Tazobactam (Sod 3.375 gm/ Sodium Chloride) 100 mls @ 25 mls/ hr IVPB Q8HR PEGGY Piperacillin Sod/Tazobactam (Sod 3.375 gm/ Sodium Chloride) 100 mls @ 25 mls/ hr IVPB Q8HR [facility] Stop: 07/09/17 21:59 Last Admin: 07/09/17 13:52 Dose: 25 mls/hr Lisinopril (Prinivil Tab*) 5 mg PO DAILY [facility] Last Admin: 07/09/17 08:55 Dose: 5 mg Lorazepam (Ativan Inj*) 1 mg IV PUSH Q4H PRN PRN Reason: AGITATION Metoprolol Tartrate (Lopressor Tab*) 25 mg PO Q12HR [facility] Last Admin: 07/09/17 08:55 Dose: 25 mg Metoprolol Tartrate (Lopressor Iv*) 5 mg IV Q6H PRN PRN Reason: BLOOD PRESSURE Last Admin: 07/09/17 13:52 Dose: 5 mg Morphine Sulfate (Morphine Inj (Syringe)*) 2 mg IV Q2H PRN PRN Reason: PAIN Last Admin: 07/09/17 12:49 Dose: 2 mg Multivitamins/Minerals (Theragran/Minerals Tab*) 1 tab PO DAILY [facility] Last Admin: 07/09/17 08:55 Dose: 1 tab Nicotine (Nicotine Inhaler*) 10 mg INH Q2H PRN PRN Reason: CRAVING Ondansetron HCl (Zofran Inj*) 4 mg IV Q6H PRN PRN Reason: NAUSEA Pharmacy Consult (Zosyn Per Pharmacy*) 1 note FOLLOW UP . PRN PRN Reason: PER PROTOCOL Thiamine HCl (Vitamin B-1 Tab*) 100 mg PO DAILY [facility] Last Admin: 07/09/17 08:55 Dose: 100 mg Vital Signs 07/09/17 07/09/17 07/09/17 12:15 12:49 13:58 Temperature 97.3 F Pulse Rate 83 Respiratory 22 24 24 Rate Blood Pressure 128/79 (mmHg) O2 Sat by Pulse 99 Oximetry Oxygen Devices in Use Now: None Appearance: Elderly male, disheveled appearance, appears much older than stated age. Eyes: No Scleral Icterus Ears/Nose/Mouth/Throat: Mucous Membranes Moist Neck: Trachea Midline Respiratory: Symmetrical Chest Expansion and Respiratory Effort, - - BS+ bilaterally decreased, with no added sounds Cardiovascular: RRR - Normal S1 and S2 Abdominal: NL Sounds; No Tenderness; No Distention Skin: - - Inumerable skin deviations, including multiple unstageable decubiti on ischial, sacral areas Neurological: Alert and Oriented x 3, - - deconditioned Result Diagrams: 07/09/17 05:19 07/09/17 11:05 Microbiology and Other Data: Microbiology 07/05/17 20:43 Skin and Soft Tissue MRSA/MSSA (PCR - Final Leg Left Mrsa Negative S.aureus Positive Gram Stain - Final Wound Culture - Preliminary Enterococcus Faecalis Klebsiella Oxytoca Proteus Penneri 07/06/17 04:35 Gram Stain - Final Sputum Trach Sputum Culture - Preliminary Proteus Mirabilis 07/05/17 22:40 Urine Culture - Final Urine No Growth (<1,000 CFU/mL) 07/06/17 23:16 Stool Occult Blood ([facility]) - Final Stool 07/05/17 22:10 Nasal Screen MRSA (PCR)([facility]) - Final Nasal Mrsa Negative Assess/Plan/Problems-Billing Assessment: Mr. Lion is a 62yo M with PMH of tobacco and alcohol abuse BIBEMS after being found slumped in a chair, found to have severe sepsis secondary to Proteus UTI and cellulitis. - Patient Problems (1) Severe sepsis Comment: - Patient met sepsis criteria on admission with tachycardia and leukocytosis, complicated by encephalopathy and WALT. - Source is Proteus UTI and multiple infected wounds with cellulitis. (2) Acute hypoxemic respiratory failure Comment: - Multifactorial in the setting of severe sepsis, spontaneous PTX, SVT - intubated on 07/06/17 and extubated 07/06/17. (3) Spontaneous pneumothorax Comment: - S/p percutaneous chest tube placement by Surgery. (4) Urinary tract infection due to Proteus Comment: - Present on admission, not Berkowitz catheter related. - Continue Zosyn #4. - Repeat blood cultures. (5) Severe protein-calorie malnutrition Comment: - Patient has prealbumin 3, with poor wound healing. - Continue nutritional support. (6) Wounds and injuries Comment: - Patient has multiple unstageable wounds present on admission, spread on LE, ischium, sacral. - Wound care input appreciated. - Will request Surgical consultation, but patient needs a better nutritional state prior to surgical interventions. (7) SVT (supraventricular tachycardia) Comment: - Rate is controlled now - continue Metoprolol. (8) Alcoholic cardiomyopathy Comment: - Echo showed EF 20% with global hypokinesis - suspect ETOH related. (9) Alcohol abuse Comment: - No signs of withdrawal. - Continue thiamine. (10) Tobacco abuse Comment: - Nicotine supplementation PRN. (11) DVT prophylaxis Comment: - SQ heparin. (12) Full code status Status and Disposition: Inpatient.
[2017-07-10] MEDS: Morphine INJ* 2 MG/ML 1 ML SYRINGE (TWO MG - NEW SYRINGE VERSION) IV PRN ×3 (00:46→08:48)
[2017-07-10] MEDS: Metoprolol Tartrate IV* 1 MG/ML 5 ML VIAL IV PRN (01:26)
[2017-07-10] MEDS ORDERED: Metoprolol Tartrate IV* 1 MG/ML 5 ML VIAL IV ONE (02:33)
[2017-07-10] MEDS: ZOSYN 3.375 GM Q8H per EXTENDED INFUSION IVPB SCH ×10 (03:29→20:23)
[2017-07-10 06:10] LABS: Hematocrit 36 % (42-52); Hemoglobin 11.5 g/dl (14.0-18.0); Mean Corpuscular HGB Conc 32 g/dl (31-36); Mean Corpuscular Hemoglobin 27 pg (27-31); Mean Corpuscular Volume 85 fL (80-94); Mean Platelet Volume 8 um3 (7.4-10.4); Red Cell Distribution Width 20 % (10.5-15); White Blood Count 18.9 10^3/ul (3.5-10.8)
[2017-07-10] MEDS: Heparin VIAL(*) 5000 UNITS/ML VIAL (FIVE THOUSAND) SUBCUT SCH ×3 (06:24→21:32)
[2017-07-10 06:28] LABS: BUN/Creatinine Ratio 29.2 (8-20); Calcium 7.9 mg/dL (8.6-10.3); EGFR African American 90.5 (>60); EGFR Non-African American 70.3 (>60); Potassium 3.5 mmol/L (3.5-5.0); Total Protein 5.9 g/dL (6.4-8.9)
[2017-07-10 06:29] LABS: C Reactive Protein 59.57 mg/L (< 5.00); Globulin 3.9 g/dL (2-4); Total Bilirubin 0.7 mg/dL (0.2-1.0)
[2017-07-10 06:39] LABS: Add Diff/Slide Review? Slide Review Added; Comments Flag Yes
[2017-07-10 08:28] LABS: Erythrocyte Sed Rate 48 mm/Hr (0-20)
[2017-07-10] MEDS ORDERED: Furosemide IV* 10 MG/ML VIAL (40 MG) IV SLOW PU ONE (08:28)
[2017-07-10] MEDS: Metoprolol Tartrate TAB* 50 mg PO SCH ×2 (08:48→20:24)
[2017-07-10] MEDS: Multivitamins/Minerals TAB PO SCH (08:48)
[2017-07-10] MEDS: Thiamine TAB* 100 MG TAB PO SCH (08:49)
[2017-07-10] MEDS: Famotidine TAB* 20 MG PO SCH (08:49)
[2017-07-10] MEDS: Lisinopril TAB* 5 MG PO SCH (08:49)
[2017-07-10] MEDS: Folic Acid TAB* 1 MG PO SCH (08:49)
[2017-07-10] MEDS ORDERED: Furosemide IV* 10 MG/ML 2 ML VIAL (20 MG) IV SLOW PU ONE (10:30)
--- NOTE | 2017-07-10 10:32 | PN ---
Progress Note - Progress Note Date of Service: 07/10/17 Note: Asked to eval for multiple decubiti. History noted. Please refer to wound clinic nurses notes for pictures., Has sacral and ischial decubiti which are dry, no cellullitis, no underlying purulence palpable. LLE w/ extensive ulcers and decubiti. Open ulcers over much of the lateral calf , clean. Large heel decub which is soft, probably with underlying necrotic tissue. RLE similar to left though much less severe., No sign of infection. Will need to be followed in wound clinic. May need OR debridement of left heel. Given overall condition, prognosis for healing is limited.
--- NOTE | 2017-07-10 16:23 | PN ---
Subjective Date of Service: 07/10/17 Interval History: HOSPITALIST PROGRESS NOTE Patient seen and examined at bedside. He was dyspneic and uncomfortable earlier today, but feeling better now after diuresis. Family History: Unchanged from Admission Social History: Unchanged from Admission Past Medical History: Unchanged from Admission Objective Active Medications: Acetaminophen (Tylenol Tab*) 650 mg PO Q4H PRN PRN Reason: PAIN Device (Nicotine Mouth Piece*) 1 each INH ONCE PRN PRN Reason: CRAVINGS Famotidine (Pepcid Tab*) 20 mg PO DAILY [facility] Last Admin: 07/10/17 08:49 Dose: 20 mg Folic Acid (Folvite Tab*) 1 mg PO DAILY [facility] Last Admin: 07/10/17 08:49 Dose: 1 mg Heparin Sodium (Porcine) (Heparin Vial(*)) 5,000 units SUBCUT Q8HR [facility] Last Admin: 07/10/17 14:48 Dose: 5,000 units Heparin Sodium (Porcine) (Heparin Flush Picc/Ml/Cvc(*)) 1 - 3 ml FLUSH 0600, 1800 [facility] PRN Reason: Protocol Last Admin: 07/10/17 07:03 Dose: Not Given Piperacillin Sod/Tazobactam (Sod 3.375 gm/ Sodium Chloride) 100 mls @ 25 mls/ hr IVPB Q8H [facility] Stop: 07/11/17 11:59 Last Admin: 07/10/17 11:46 Dose: 25 mls/hr Piperacillin Sod/Tazobactam (Sod 3.375 gm/ Dextrose) 100 mls @ 25 mls/hr IVPB Q8H [facility] Lisinopril (Prinivil Tab*) 5 mg PO DAILY [facility] Last Admin: 07/10/17 08:49 Dose: 5 mg Lorazepam (Ativan Inj*) 1 mg IV PUSH Q4H PRN PRN Reason: AGITATION Metoprolol Tartrate (Lopressor Iv*) 5 mg IV Q6H PRN PRN Reason: BLOOD PRESSURE Last Admin: 07/10/17 01:26 Dose: 5 mg Metoprolol Tartrate (Lopressor Tab*) 50 mg PO Q12HR [facility] Last Admin: 07/10/17 08:48 Dose: 50 mg Morphine Sulfate (Morphine Inj (Syringe)*) 2 mg IV Q2H PRN PRN Reason: PAIN Last Admin: 07/10/17 08:48 Dose: 2 mg Multivitamins/Minerals (Theragran/Minerals Tab*) 1 tab PO DAILY [facility] Last Admin: 07/10/17 08:48 Dose: 1 tab Nicotine (Nicotine Inhaler*) 10 mg INH Q2H PRN PRN Reason: CRAVING Ondansetron HCl (Zofran Inj*) 4 mg IV Q6H PRN PRN Reason: NAUSEA Pharmacy Consult (Zosyn Per Pharmacy*) 1 note FOLLOW UP . PRN PRN Reason: PER PROTOCOL Thiamine HCl (Vitamin B-1 Tab*) 100 mg PO DAILY [facility] Last Admin: 07/10/17 08:49 Dose: 100 mg Vital Signs 07/10/17 07/10/17 07/10/17 11:47 11:55 15:14 Temperature 97.6 F 97.8 F Pulse Rate 86 93 Respiratory 18 20 20 Rate Blood Pressure 129/70 126/72 (mmHg) O2 Sat by Pulse 98 96 Oximetry Oxygen Devices in Use Now: None Appearance: Elderly male, appears much older than stated age, disheveled appearance, lying in bed in NAD. Eyes: No Scleral Icterus Ears/Nose/Mouth/Throat: Mucous Membranes Moist Neck: Trachea Midline Respiratory: Symmetrical Chest Expansion and Respiratory Effort, - - BS+ bilaterally with bibasilar crackles Cardiovascular: RRR - Normal S1 and S2 Abdominal: NL Sounds; No Tenderness; No Distention Extremities: - - Multiple wounds to bilateral LE, ischial and sacral areas Neurological: Alert and Oriented x 3, - - deconditioned Result Diagrams: 07/10/17 05:59 07/10/17 05:59 Assess/Plan/Problems-Billing Assessment: Mr. Lion is a 62yo M with PMH of tobacco and alcohol abuse BIBEMS after being found slumped in a chair, found to have severe sepsis secondary to Proteus UTI and cellulitis. - Patient Problems (1) Severe sepsis Comment: - Patient met sepsis criteria on admission with tachycardia and leukocytosis, complicated by encephalopathy and WALT. - Source is Proteus UTI and multiple infected wounds with cellulitis. (2) Acute hypoxemic respiratory failure Comment: - Multifactorial in the setting of severe sepsis, spontaneous PTX, SVT - intubated on 07/06/17 and extubated 07/06/17. (3) Systolic CHF, acute Comment: - Patient received IVF overnight and was in respiratory distress earlier today. - Responding well to diuretics. (4) Spontaneous pneumothorax Comment: - S/p percutaneous chest tube placement by Surgery. (5) Urinary tract infection due to Proteus Comment: - Present on admission, not Berkowitz catheter related. - Continue Zosyn #5. - Repeat blood cultures pending. (6) Severe protein-calorie malnutrition Comment: - Patient has prealbumin 3, with poor wound healing. - Continue nutritional support. (7) Wounds and injuries Comment: - Patient has multiple unstageable wounds present on admission, spread on LE, ischium, sacral. - Wound care input appreciated. - Surgical consultation appreciated. - Patient could not tolerate [place] cath and with diuresis it is impossible to keep his wounds dry - will place Berkowitz catheter. (8) SVT (supraventricular tachycardia) Comment: - Rate is controlled now - continue Metoprolol. (9) Alcoholic cardiomyopathy Comment: - Echo showed EF 20% with global hypokinesis - suspect ETOH related. (10) Alcohol abuse Comment: - No signs of withdrawal. - Continue thiamine. (11) Tobacco abuse Comment: - Nicotine supplementation PRN. (12) DVT prophylaxis Comment: - SQ heparin. (13) Full code status Status and Disposition: Inpatient.
[2017-07-11] MEDS: ZOSYN 3.375 GM Q8H per EXTENDED INFUSION IVPB SCH ×2 (03:51)
[2017-07-11 06:31] LABS: BUN/Creatinine Ratio 36.6 (8-20); EGFR African American 121.6 (>60); EGFR Non-African American 94.6 (>60); Potassium 3.1 mmol/L (3.5-5.0)
[2017-07-11 06:51] LABS: Hematocrit 37 % (42-52); Hemoglobin 11.4 g/dl (14.0-18.0); Mean Corpuscular HGB Conc 31 g/dl (31-36); Mean Corpuscular Hemoglobin 26 pg (27-31); Mean Corpuscular Volume 85 fL (80-94); Mean Platelet Volume 9 um3 (7.4-10.4); Red Blood Count 4.34 10^6/ul (4.0-5.4); Red Cell Distribution Width 20 % (10.5-15); White Blood Count 16.9 10^3/ul (3.5-10.8)
[2017-07-11 06:57] LABS: Add Diff/Slide Review? Slide Review Added; Comments Flag Yes
[2017-07-11] MEDS: Heparin VIAL(*) 5000 UNITS/ML VIAL (FIVE THOUSAND) SUBCUT SCH ×3 (07:32→21:33)
--- NOTE | 2017-07-11 07:59 | RAD ---
INDICATION: Follow-up pneumothorax COMPARISON: Most recent chest x-rays dated July 08, 2017 TECHNIQUE: Single AP portable view of the chest was obtained. FINDINGS: Image quality is compromised due to the relative inferiority of a portable chest x-ray. There is been interval removal of the right upper smallbore chest tube. There is a small right-sided pneumothorax. Patchy densities obscure the bilateral lungs. There is density obscuring the bilateral hemidiaphragm and the costophrenic angles. There is mild cardiomegaly with calcification overlying the arch of the aorta. Visualized bones are normal for the patient's age. IMPRESSION: 1. Small right-sided pneumothorax after interval removal of smallbore chest tube. 2. Increased patchy densities obscuring the bilateral lungs and left greater than right hemidiaphragm. Please correlate to signs of pneumonia with possible bibasilar pleural effusion.
[2017-07-11] MEDS ORDERED: Furosemide IV* 10 MG/ML VIAL (40 MG) IV SLOW PU ONE (08:37)
[2017-07-11] MEDS: Lisinopril TAB* 5 MG PO SCH (10:40)
[2017-07-11] MEDS: Thiamine TAB* 100 MG TAB PO SCH (10:40)
[2017-07-11] MEDS: Multivitamins/Minerals TAB PO SCH (10:40)
[2017-07-11] MEDS: Potassium Chlor TAB* 20 MEQ TAB.ER PO SCH ×2 (10:41→21:27)
[2017-07-11] MEDS: Famotidine TAB* 20 MG PO SCH (10:41)
[2017-07-11] MEDS: Folic Acid TAB* 1 MG PO SCH (10:41)
[2017-07-11] MEDS: Metoprolol Tartrate TAB* 50 mg PO SCH (10:41)
[2017-07-11] MEDS: Piperacillin/Tazobac ADVAN(*) 3.375 GM in D5W 100 ML BAG* 100 ML IVPB SCH ×2 (12:59→23:41)
[2017-07-11 15:11] LABS: Troponin I 0.19 ng/mL (<0.04)
[2017-07-11] MEDS ORDERED: Furosemide IV* 10 MG/ML 2 ML VIAL (20 MG) IV SLOW PU ONE (15:13)
[2017-07-11] MEDS: Spironolactone TAB* 25 MG PO SCH (15:41)
[2017-07-11] MEDS: Metoprolol Tartrate IV* 1 MG/ML 5 ML VIAL IV PRN ×2 (17:28→21:53)
--- NOTE | 2017-07-11 17:33 | PN ---
Subjective Date of Service: 07/11/17 Interval History: HOSPITALIST PROGRESS NOTE Patient seen and examined at bedside. He was very dyspneic this AM, had 36 beats of Vtach. Responded well to diuresis and breathing is easier now. Family History: Unchanged from Admission Social History: Unchanged from Admission Past Medical History: Unchanged from Admission Objective Active Medications: Acetaminophen (Tylenol Tab*) 650 mg PO Q4H PRN PRN Reason: PAIN Device (Nicotine Mouth Piece*) 1 each INH ONCE PRN PRN Reason: CRAVINGS Famotidine (Pepcid Tab*) 20 mg PO DAILY [facility] Last Admin: 07/11/17 10:41 Dose: 20 mg Folic Acid (Folvite Tab*) 1 mg PO DAILY [facility] Last Admin: 07/11/17 10:41 Dose: 1 mg Heparin Sodium (Porcine) (Heparin Vial(*)) 5,000 units SUBCUT Q8HR [facility] Last Admin: 07/11/17 14:35 Dose: 5,000 units Heparin Sodium (Porcine) (Heparin Flush Picc/Ml/Cvc(*)) 1 - 3 ml FLUSH 0600, 1800 [facility] PRN Reason: Protocol Last Admin: 07/11/17 04:43 Dose: Not Given Piperacillin Sod/Tazobactam (Sod 3.375 gm/ Dextrose) 100 mls @ 25 mls/hr IVPB Q8H [facility] Last Admin: 07/11/17 12:59 Dose: 25 mls/hr Lisinopril (Prinivil Tab*) 2.5 mg PO DAILY [facility] Lorazepam (Ativan Inj*) 1 mg IV PUSH Q4H PRN PRN Reason: AGITATION Metoprolol Tartrate (Lopressor Iv*) 5 mg IV Q6H PRN PRN Reason: BLOOD PRESSURE Last Admin: 07/11/17 17:28 Dose: 5 mg Metoprolol Tartrate (Lopressor Tab*) 25 mg PO BID [facility] Morphine Sulfate (Morphine Inj (Syringe)*) 2 mg IV Q2H PRN PRN Reason: PAIN Last Admin: 07/10/17 08:48 Dose: 2 mg Multivitamins/Minerals (Theragran/Minerals Tab*) 1 tab PO DAILY [facility] Last Admin: 07/11/17 10:40 Dose: 1 tab Nicotine (Nicotine Inhaler*) 10 mg INH Q2H PRN PRN Reason: CRAVING Ondansetron HCl (Zofran Inj*) 4 mg IV Q6H PRN PRN Reason: NAUSEA Pharmacy Consult (Zosyn Per Pharmacy*) 1 note FOLLOW UP . PRN PRN Reason: PER PROTOCOL Potassium Chloride (Klor Con Er Tab*) 40 meq PO BID [facility] Stop: 07/12/17 09:01 Last Admin: 07/11/17 10:41 Dose: 40 meq Spironolactone (Aldactone Tab*) 25 mg PO DAILY [facility] Last Admin: 07/11/17 15:41 Dose: 25 mg Thiamine HCl (Vitamin B-1 Tab*) 100 mg PO DAILY [facility] Last Admin: 07/11/17 10:40 Dose: 100 mg Vital Signs 07/11/17 07/11/17 10:37 15:43 Temperature 98.3 F 97.5 F Pulse Rate 95 101 Respiratory 24 22 Rate Blood Pressure 138/79 123/66 (mmHg) O2 Sat by Pulse 100 96 Oximetry Oxygen Devices in Use Now: OxyMask - 2 liters Appearance: Frail, disheveled male, appears much older than stated age, lying in bed in mild respiratory distress. Eyes: No Scleral Icterus Ears/Nose/Mouth/Throat: Mucous Membranes Moist Neck: Trachea Midline Respiratory: Symmetrical Chest Expansion and Respiratory Effort, - - BS+ bilaterally with bibasilar crackles Cardiovascular: RRR - Normal S1 and S2 Extremities: - - Multiple bilateral LE and gluteal wounds Neurological: - - AAox2 (self and place), deconditioned Result Diagrams: 07/11/17 05:59 07/11/17 05:59 Assess/Plan/Problems-Billing Assessment: Mr. Lion is a 62yo M with PMH of tobacco and alcohol abuse BIBEMS after being found slumped in a chair, found to have severe sepsis secondary to Proteus UTI and cellulitis. - Patient Problems (1) Severe sepsis Comment: - Patient met sepsis criteria on admission with tachycardia and leukocytosis, complicated by encephalopathy and WALT. - Source is Proteus UTI and multiple infected wounds with cellulitis. (2) Acute hypoxemic respiratory failure Comment: - Multifactorial in the setting of severe sepsis, spontaneous PTX, SVT - intubated on 07/06/17 and extubated 07/06/17. (3) Systolic CHF, acute Comment: - Respiratory distress again today - continue diuresis with Furosemide and add Aldactone. - Cardiology consult requested. (4) Spontaneous pneumothorax Comment: - S/p percutaneous chest tube placement by Surgery. - F/u CxR shows small residual right PTX - d/w Surgery - no indication for chest tube at this time - will repeat CxR in AM. (5) Urinary tract infection due to Proteus Comment: - Present on admission, not Berkowitz catheter related. - Continue Zosyn #6. - Repeat blood cultures pending. (6) Severe protein-calorie malnutrition Comment: - Patient has prealbumin 3, with poor wound healing. - Continue nutritional support. - Will try NGT with tube feeds as his PO intake remains poor. (7) Wounds and injuries Comment: - Patient has multiple unstageable wounds present on admission, spread on LE, ischium, sacral. - Wound care input appreciated. - Surgical consultation appreciated. - Patient could not tolerate [place] cath and with diuresis it is impossible to keep his wounds dry - keep Berkowitz catheter. (8) SVT (supraventricular tachycardia) Comment: - Rate is controlled now, but had episodes earlier today - continue Metoprolol. (9) Alcoholic cardiomyopathy Comment: - Echo showed EF 20% with global hypokinesis - likely ETOH related. (10) Alcohol abuse Comment: - No signs of withdrawal. - Continue thiamine. (11) Tobacco abuse Comment: - Nicotine supplementation PRN. (12) V-tach Comment: - Patient had 36 beats of Vtach earlier today, asymptomatic, likely a combination of his cardiomyopathy and hypokalemia. - Continue beta-nimco. (13) Hypokalemia Comment: - Replete. (14) DVT prophylaxis Comment: - SQ heparin. (15) Full code status Status and Disposition: Inpatient.
[2017-07-11 18:33] LABS: Magnesium 1.7 mg/dL (1.9-2.7)
[2017-07-11] MEDS ORDERED: Digoxin IV* 0.5 MG/2 ML AMP (0.25 MG/ML) IV SLOW PU ONE (18:41)
[2017-07-11] MEDS ORDERED: Potassium Chloride LIQUID* 20 MEQ PACKET PO ONE (18:42)
[2017-07-11] MEDS ORDERED: Magnesium Sulfate 2 GM IV* 2 GM/50 ML BAG IVPB ONE (19:04)
--- NOTE | 2017-07-11 20:43 | CONS ---
CARDIOLOGY CONSULTATION REPORT: DATE OF CONSULT: 07/11/17 REASON FOR EVALUATION: Cardiomyopathy, congestive heart failure. HISTORY OF PRESENT ILLNESS: The patient is a poor historian. History was obtained from the chart and Dr. Ovalle. This is a 62-year-old gentleman who has a history of extensive alcohol use, who apparently was admitted with respiratory distress and extensive leg wounds and maggot infection. He was intubated. He also had pneumothorax and required a chest tube. He has also had paroxysmal ventricular and atrial arrhythmias with nonsustained VT as well as SVT and what appeared to be possible AFib with rapid ventricular responses. He has a history of drinking bottle of whisky a day and smoking 2 packs of cigarettes per day prior to admission. Lastly, the patient continues to have difficulty with managing volume. He had some heart failure after receiving IV antibiotics and required diuretics yesterday. Of note, he had an echocardiogram performed on 07/05/17 when he was admitted, which revealed severe LV dysfunction, EF of less than 20%, mild left atrial enlargement, mild to moderate right atrial enlargement. There was aortic stenosis of a moderate degree, may be underestimated to low LV function. Highest velocity was obtained in the apical 5-chamber view, mild MR, mild dilatation of ascending aorta, severely decreased LV function. At the time of study, he was in normal sinus rhythm, but had been in tachycardias earlier that day. He has been treated with heart failure regimen including beta blockers, ALEX inhibitors and diuretic. He also has been treated with antibiotic. He denies chest pain or orthopnea. He denies previous heart problems, murmurs, rheumatic heart disease. He says he lives in a house, he is , has no children. He is unemployed. He thinks his mother and father are alive and well , but does not have any idea of their medical history. He has no siblings. He denies past surgical history. Denies any allergies. The admission note does comment that his parents related to cancer. According to the admission note, originally he was brought in found slumped over in his chair by a friend and he was reported to have the long-term alcoholism and drinks 4 to 5 of 24-ounce beers per day. At the time of his admission, his potassium was 6.1, creatinine was 1.52, troponin 0.42. CURRENT MEDICATIONS: Include: 1. Zosyn. 2. Potassium chloride 40 mEq b.i.d. 3. Thiamine 100 mg a day. 4. Acetaminophen. 5. Nicotine mouthpiece. 6. Pepcid 20 mg a day. 7. Folic acid 1 mg a day. 8. Heparin subcu 5000 q.8. 9. Lisinopril 5 mg a day. 10. Lorazepam 1 mg q.4. 11. Metoprolol 25 mg b.i.d. 12. Morphine 2 mg IV q.2. 13. Nicotine inhaler. 14. Zofran 4 mg IV q.6. REVIEW OF SYSTEMS: Review of systems x10 was negative except as above. PHYSICAL EXAMINATION: He is a well-developed, cachetic-appearing gentleman, fairly frail. Weight 143 pounds, heart rate 92, O2 sats 100%, blood pressure 138/79. No significant JVD, carotids 2+. No transient murmurs or bruits heard. Cardiac Exam: S1, S2 with a 3/6 systolic ejection murmur heard at the left lower sternal border and apex. Chest: Decreased breath sounds, increased resonance to percussion. No CVAT. Abdomen: Bowel sounds present, nontender. Femoral pulse intact without bruits. Distal pulse is not examined. The patient 's lower extremities were wrapped with dressings. There were healing eschars above and below the dressings. There was no edema in the exposed parts of the lower extremities. Lower extremity strength is 4/5 bilaterally. Deep tendon reflexes 2/4 in the upper extremities, unable to illicit in the lower extremities. DIAGNOSTIC STUDIES/LAB DATA: Today, sodium 146, potassium at 3.1, BUN of 30, creatinine of 0.82, calcium is 8, CRP yesterday was 59, calcium is 7.9. White count 16.9, hemoglobin 11.4, hematocrit at 37, sed rate of 48 yesterday. Chest x-ray from today: Small right-sided pneumothorax after removal of his chest tube, increased patchy densities obscuring bilateral lungs, left greater than right. Possible pneumonia and bibasilar pleural effusions. EKG from October 2009 revealed sinus rhythm with lateral ST-T changes, possible LVH. EKG from 07/05/17 revealed what appeared to be sinus tachycardia with LVH, poor R- wave progression, anteroseptal SD, lateral T-wave inversions; 07/06/17 revealed what appeared to be a narrow complex tachycardia, [address]-T changes and low voltage in the limb leads. His EKG from 07/08/17 revealed narrow complex tachycardia 146, possible SVT with lateral ST-T changes, poor R-wave progression, possible anteroseptal SD. He has also had runs of nonsustained SVT up to 180 and now sustained wide complex tachycardia up to 8 beats as well as sinus bradycardia as low as, yesterday, in the 30s. IMPRESSION: My impression is that Mr. Lion has severe debilitation and severe left ventricular dysfunction, possible moderate to severe aortic stenosis and chronic infection of unclear etiology. His prognosis is guarded and he has also had problems tolerating fluids. This could be due to systolic dysfunction and/or is valvular disease and alchohol abuse. He also has had marked tachycardias, which may predispose him to tachycardia-induced cardiomyopathy. He has a history of high alcohol intake, which could predispose him to left ventricular dysfunction. He also has history of tobacco use and is at risk for coronary disease. I discussed at length with him the potential options, he is willing to proceed with more aggressive workup; however, given his frail status, I suggest medical therapy for now while he is treated for his infection and consideration of pharmacologic stress or cardiac catheterization at some point. 1. In the short term, would avoid alcohol use. 2. Would discontinue tobacco use. 3. We will try to maintain his potassium over 4. 4. Would avoid excessive afterload reduction given the potential for severe aortic stenosis. 5. Would repeat his echo to see if his LV function has improved after control of his tachyrhythmia. 6. We will repeat his EKG. 7. We will repeat his troponin. 8. We will consider reducing his lisinopril if indeed he has confirmed continued severe aortic stenosis; if the degree of aortic stenosis is still uncertain after repeat evaluation, we could consider a dobutamine stress echo.. 9. We will consider adding digoxin if he continues to have tachyarrhythmias. 10. We will continue a low dose of beta nimco as you are doing. 11. We will consider adding Aldactone to his regimen to try and help with left ventricular dysfunction and help maintain his potassium. Prognosis is guarded and discussed with Dr. Ovalle. [id number]/[facility] #: [id number] [facility]
[2017-07-11] MEDS ORDERED: Furosemide IV* 10 MG/ML VIAL (40 MG) IV ONE (21:22)
[2017-07-11] MEDS: Metoprolol Tartrate TAB* 25 MG PO SCH (21:25)
--- NOTE | 2017-07-11 21:55 | PN ---
Progress Note - Progress Note Date of Service: 07/11/17 Note: Paged by RN for increase work of breathing and rales. Patient appears volume overloaded. Asked him regarding his code status, wants to be DNR/DNI. Asked him if he thought we would ever get back home. He realizes that he will not be able to. Asked about if he keeps wanting aggressive treatment with oxygen masks , blood draws, etc. He said no. He is interested in hospice. I offered to call his friend Sky Moreno who has been coming to visit him. He requested that I speak with him and have him come in to see him tonight. I left a message for Sky to call me back. When returning to confirm MOLST he remains consistent with wanting to be DNR/DNI when asking more specifics he would like a feeding tube. Would recommend readdressing goals of care again in the morning. Will place a palliative care consult in. He is eligible for hospice with a prinicple diagnosis of CM with EF <20%, hypoxic respiratory failure and malnutrition.
[2017-07-12] MEDS: Morphine INJ* 2 MG/ML 1 ML SYRINGE (TWO MG - NEW SYRINGE VERSION) IV PRN ×3 (00:32→16:54)
[2017-07-12] MEDS ORDERED: Metoprolol Tartrate IV* 1 MG/ML 5 ML VIAL IV PRN (00:48)
[2017-07-12] MEDS: Heparin VIAL(*) 5000 UNITS/ML VIAL (FIVE THOUSAND) SUBCUT SCH ×3 (06:42→23:12)
[2017-07-12] MEDS: Piperacillin/Tazobac ADVAN(*) 3.375 GM in D5W 100 ML BAG* 100 ML IVPB SCH (07:47)
[2017-07-12] MEDS ORDERED: Piperacillin/Tazobac ADVAN(*) 3.375 GM in D5W 100 ML BAG* 100 ML IVPB SCH (08:00)
[2017-07-12 08:33] LABS: Hematocrit 36 % (42-52); Hemoglobin 10.9 g/dl (14.0-18.0); Mean Corpuscular HGB Conc 31 g/dl (31-36); Mean Corpuscular Hemoglobin 26 pg (27-31); Mean Corpuscular Volume 85 fL (80-94); Mean Platelet Volume 8 um3 (7.4-10.4); Red Blood Count 4.18 10^6/ul (4.0-5.4); Red Cell Distribution Width 21 % (10.5-15); White Blood Count 15.9 10^3/ul (3.5-10.8)
[2017-07-12 08:49] LABS: BUN/Creatinine Ratio 32.1 (8-20); EGFR African American 128.9 (>60); EGFR Non-African American 100.2 (>60); Magnesium 2.2 mg/dL (1.9-2.7); Potassium 3.7 mmol/L (3.5-5.0)
[2017-07-12] MEDS: Lisinopril TAB* 5 MG PO SCH (09:09)
[2017-07-12] MEDS: Potassium Chlor TAB* 20 MEQ TAB.ER PO SCH (09:10)
[2017-07-12] MEDS: Spironolactone TAB* 25 MG PO SCH (09:10)
[2017-07-12] MEDS: Thiamine TAB* 100 MG TAB PO SCH (09:10)
[2017-07-12] MEDS: Folic Acid TAB* 1 MG PO SCH (09:10)
[2017-07-12] MEDS: Metoprolol Tartrate TAB* 25 MG PO SCH ×2 (09:10→23:15)
[2017-07-12] MEDS: Famotidine TAB* 20 MG PO SCH (09:10)
[2017-07-12] MEDS: Multivitamins/Minerals TAB PO SCH (09:10)
[2017-07-12] MEDS ORDERED: Cefepime(*) 1 GM in NS 0.9% 50 ML* 50 ML IVPB SCH (11:00)
[2017-07-12] MEDS: Cefepime(*) 1 GM in D5W 50 ML BAG* 50 ML IVPB SCH ×2 (12:40→23:03)
--- NOTE | 2017-07-12 13:18 | CONS ---
CONSULTATION REPORT: DATE OF CONSULT: 07/12/17 REQUESTING PHYSICIAN: Dr. Li. CONSULTING SERVICE: Infectious Disease. REASON FOR CONSULTATION: Proteus bacteremia. IMPRESSION: 1. Admitted 07/05/17, Proteus bacteremia with sepsis and encephalopathy, as well as cachexia. 2. Chronic bilateral lower extremity wounds, some pressure related, some non- pressure related, one group Proteus penneri, in the blood he had Proteus mirabilis, he grew the same organism from his sputum in the setting of right lower lobe infiltrate, he also had a pneumonia at admission. Urine culture was negative; however, it was a couple of hours after a dose of cefepime so that may have caused a false negative in the setting of abnormal urinalysis. 3. Given his poor prognosis and impending hospice, at this point we will just change the Zosyn to cefepime for a couple more days to complete treatment for his bacteremia. I do not think that given his severe malnutrition that his lower extremities wounds are going to be healed. HISTORY OF PRESENT ILLNESS: This 62-year-old alcoholic man admitted after being found sitting on a chair for 3 days by a friend of his. He was febrile, septic, started on cefepime in the ER and then transitioned to Zosyn after found to have extensive bilateral lower extremities wounds which contained a number of maggots and eclosing flies. He was febrile. He had a white count of 15,000. He was hydrated, given antibiotics. He was also found to have a pneumothorax. He had a chest tube placed which has since been removed. He has been here a week now, white count 15,000. CRP changed from 130 to 60. His fevers resolved. He is coughing and short of breath. Denies chest pain or leg pain. He cannot provide much of the history of his illness. It was obtained instead from review of the medical records, discussion with Dr. Li. PAST MEDICAL HISTORY: 1. Alcohol abuse. 2. Nicotine abuse. MEDICATIONS: 1. Tylenol. 2. Famotidine. 3. Folic acid. 4. Heparin subcutaneous injection. 5. Lisinopril. 6. Zosyn 3.375 g IV every 8 hours. 7. Morphine as needed. 8. Metoprolol. 9. Nicotine inhaler. 10. Spironolactone. 11. Diovan. ALLERGIES: No known drug allergies. FAMILY HISTORY: His parents were both from cancer. SOCIAL HISTORY: Lives in [place], unemployed. He is a smoker. REVIEW OF SYSTEMS: Unobtainable given his current mental status. PHYSICAL EXAM: Vital Signs: Temperature 36, heart rate 80, respiratory rate 20 , blood pressure 123/69, O2 sat 100% on room air. General: He is asleep but awakens to touch, he answers yes and no to some questions. He tracks, does not generally follow commands. HEENT: There is no conjunctival hemorrhage. Oropharynx: There is no thrush. Neck is supple. Lymph Nodes: There is no inguinal, axillary or epitrochlear lymphadenopathy. Heart is regular rate and rhythm without murmurs, rubs or gallops. Lungs have bilateral expiratory rhonchi. Abdomen: Soft, nontender, nondistended. There are bowel sounds present. Skin: There is no rash or splinter hemorrhages. Large right calcaneal ulceration with eschar, right great toe tip with eschar. Musculoskeletal: There is no spine tenderness to palpation or joint synovitis. LABORATORY DATA: Sodium 146, creatinine 0.7. White blood cell count 15, hemoglobin 10, platelets 134,000. Please see impressions and recommendations outlined above, which I have discussed with Dr. Lobo. Thank you for asking me to see Mr. Lion in consultation. [id number]/[facility] #: [id number] ELIANA
--- NOTE | 2017-07-12 13:32 | ECHO ---
Patient: KAYCEE CORONEL [facility] Rec#: [id number] : 1955 Date: 07/12/2017 Age: 62y Height: 172.72 cm / 68.0 in Weight: 73.03 kg / 161.0 lbs Sex: M BSA: 1.86 Room#: [facility] Admit Date#: 07/05/2017 Type: Inpatient Referring: Garcia Miller MD Reading: Chris Banks MD Red Lead Burner: Jennifer Baer [facility] Transthoracic Echocardiogram Indication: Aortic Stenosis BP: 136/73 HR: 87 Rhythm: NSR with PVCs Findings History: ETOH abuse,sepsis,PSVT,smoker,s/p intubation and mechanical ventilation. Technical Comments: The study quality is good. Completed at 1117. Left Ventricle: The left ventricular chamber size is normal. Mild concentric left ventricular hypertrophy is observed. Severe global hypokinesis of the left ventricle is observed. There is severely decreased left ventricular systolic function. The estimated ejection fraction is less than 20%. The assessment of diastolic function is non-diagnostic. The patient was unable to perform a Valsalva maneuver. Left Atrium: The left atrium is moderately dilated. Right Ventricle: Moderator Band present. The right ventricular cavity size is normal. The right ventricular global systolic function is moderately reduced. Right Atrium: The right atrium is moderately dilated. Aortic Valve: The aortic valve appears bicuspid. There is moderate thickening of the right coronary cusp. There is mild to moderate aortic regurgitation. There is moderate aortic stenosis. The highest aortic valve velocity was obtained with the standard probe from the A3C view. Mitral Valve: The mitral valve leaflets are mildly thickened. There is mild mitral regurgitation. The mitral regurgitant jet is centrally directed. There is no evidence of mitral stenosis. Tricuspid Valve: The tricuspid valve leaflets are normal. There is mild tricuspid regurgitation. There is evidence of mild pulmonary hypertension. There is no tricuspid stenosis. Pulmonic Valve: The pulmonic valve structure is not well visualized. There is a trace pulmonic regurgitation. There is no pulmonic stenosis. Pericardium: The pericardium appears normal. Aorta: There is mild dilatation of the ascending aorta. The aortic arch is not well visualized. There is moderate dilatation of the aortic root. Pulmonary Artery: The main pulmonary artery is not well visualized. Venous: The inferior vena cava appears normal in size. There is an approximate 50% respiratory change in the inferior vena cava dimension. Summary: There are no significant changes when compared to the previous study done on 07/06/17 Conclusions Mild concentric left ventricular hypertrophy is observed. Severe global hypokinesis of the left ventricle is observed. There is severely decreased left ventricular systolic function. The estimated ejection fraction is less than 20%. The right ventricular global systolic function is moderately reduced. There is mild to moderate aortic regurgitation. There is moderate aortic stenosis. There is mild mitral regurgitation. The mitral regurgitant jet is centrally directed. There is mild tricuspid regurgitation. There is evidence of mild pulmonary hypertension. The pericardium appears normal. There are no significant changes when compared to the previous study done on 07/06/17 Measurements Name Value Normal Range RVIDd (AP) 2D 3 cm (0.9 - 2.6) RVDdMajor (2D) 4.2 cm (2.2 - 4.4) RAd ISD 4CH 6.5 cm (3.4 - 4.9) RA (A4C)W 5.7 cm (2.9 - 4.6) IVSd (2D) 1.3 cm (0.6 - 1) LVPWd (2D) 1.2 cm (0.6 - 1) LVIDd (2D) 5.1 cm (3.6 - 5.4) LVIDs (2D) 4.7 cm - LV FS (2D) 7 % (25 - 45) Aortic Annulus 2.2 cm (1.4 - 2.6) Ao root diameter (2D) 4.1 cm (2.1 - 3.5) Ascending Ao 3.8 cm (2.1 - 3.4) LA dimension (AP) 2D 4.9 cm (2.3 - 3.8) LAd ISD 4CH 6.9 cm (2.9 - 5.3) LA ISD 4CH W 5.5 cm (2.5 - 4.5) Name Value Normal Range LA ESV SP 4CH (A/L) 121 ml - LA ESV SP 2CH (A/L) 117 ml - LA ESV BP (A/L) 124 ml - LA ESV BP (A/L) index 66.56 ml/m2 - LA ESV SP 4CH (MOD) 112 ml - LA ESV SP 2CH (MOD) 113 ml - Name Value Normal Range MV E-wave Vmax 1 m/sec - MV deceleration time 147 msec - MV A-wave Vmax 0.6 m/sec - MV E:A ratio 1.63 ratio - LV septal e' Vmax 0.03 m/sec - LV lateral e' Vmax 0.08 m/sec - LV E:e' septal ratio 33.33 ratio - LV E:e' lateral ratio 12.5 ratio - Name Value Normal Range AV Vmax 2.6 m/sec - AV VTI 42.8 cm - AV peak gradient 27.11 mmHg - AV mean gradient 15.1 mmHg - LVOT diameter 2.2 cm - LVOT Vmax 0.6 m/sec - LVOT VTI 10 cm - LVOT peak gradient 1.52 mmHg - LVOT mean gradient 0.67 mmHg - SV LVOT 42 ml - SCOOTER (continuity Vmax) 0.9 cm2 - SCOOTER (continuity VTI) 0.9 cm2 - AR PHT 458 msec - AR peak gradient 55.44 mmHg - Name Value Normal Range MR Vmax 3.9 m/sec - MR VTI 110 cm - Name Value Normal Range TR Vmax 3 m/sec - TR peak gradient 35 mmHg - RAP 8 mmHg - RVSP 43 mmHg - IVC diameter 1.9 cm -
--- NOTE | 2017-07-12 13:45 | PN ---
Subjective Date of Service: 07/12/17 Interval History: HOSPITALIST PROGRESS NOTE Patient seen and examined at bedside. Offers no new complaints, breathing is a little better. Family History: Unchanged from Admission Social History: Unchanged from Admission Past Medical History: Unchanged from Admission Objective Active Medications: Acetaminophen (Tylenol Tab*) 650 mg PO Q4H PRN PRN Reason: PAIN Device (Nicotine Mouth Piece*) 1 each INH ONCE PRN PRN Reason: CRAVINGS Famotidine (Pepcid Tab*) 20 mg PO DAILY [facility] Last Admin: 07/12/17 09:10 Dose: 20 mg Folic Acid (Folvite Tab*) 1 mg PO DAILY [facility] Last Admin: 07/12/17 09:10 Dose: 1 mg Heparin Sodium (Porcine) (Heparin Vial(*)) 5,000 units SUBCUT Q8HR [facility] Last Admin: 07/12/17 06:42 Dose: 5,000 units Heparin Sodium (Porcine) (Heparin Flush Picc/Ml/Cvc(*)) 1 - 3 ml FLUSH 0600, 1800 [facility] PRN Reason: Protocol Last Admin: 07/12/17 06:56 Dose: 1 ml Cefepime HCl 1 gm/ Dextrose 50 mls @ 100 mls/hr IVPB Q12HR@1100,2300 [facility] Last Admin: 07/12/17 12:40 Dose: 100 mls/hr Lisinopril (Prinivil Tab*) 2.5 mg PO DAILY [facility] Last Admin: 07/12/17 09:09 Dose: 2.5 mg Lorazepam (Ativan Inj*) 1 mg IV PUSH Q4H PRN PRN Reason: AGITATION Metoprolol Tartrate (Lopressor Tab*) 25 mg PO BID [facility] Last Admin: 07/12/17 09:10 Dose: 25 mg Metoprolol Tartrate (Lopressor Iv*) 5 mg IV Q4HR PRN PRN Reason: BLOOD PRESSURE Morphine Sulfate (Morphine Inj (Syringe)*) 2 mg IV Q2H PRN PRN Reason: PAIN Last Admin: 07/12/17 00:32 Dose: 2 mg Multivitamins/Minerals (Theragran/Minerals Tab*) 1 tab PO DAILY [facility] Last Admin: 07/12/17 09:10 Dose: 1 tab Nicotine (Nicotine Inhaler*) 10 mg INH Q2H PRN PRN Reason: CRAVING Ondansetron HCl (Zofran Inj*) 4 mg IV Q6H PRN PRN Reason: NAUSEA Spironolactone (Aldactone Tab*) 25 mg PO DAILY [facility] Last Admin: 07/12/17 09:10 Dose: 25 mg Thiamine HCl (Vitamin B-1 Tab*) 100 mg PO DAILY [facility] Last Admin: 07/12/17 09:10 Dose: 100 mg Vital Signs 07/12/17 11:30 Temperature 97.3 F Pulse Rate 84 Respiratory 20 Rate Blood Pressure 110/62 (mmHg) O2 Sat by Pulse 100 Oximetry Oxygen Devices in Use Now: OxyMask Appearance: Elderly disheveled male, appears much older than stated age, lying in bed in NAD. Eyes: No Scleral Icterus Ears/Nose/Mouth/Throat: Mucous Membranes Moist Neck: Trachea Midline Respiratory: Symmetrical Chest Expansion and Respiratory Effort, - - BS+ bilaterally with bibasilar crackles Cardiovascular: RRR - Normal S1 and S2 Abdominal: NL Sounds; No Tenderness; No Distention Skin: - - Multiple wounds on bilateral LE, coccyx, ischium, foul smelling Neurological: Alert and Oriented x 3, - - Deconditioned Result Diagrams: 07/12/17 08:10 07/12/17 08:10 Assess/Plan/Problems-Billing Assessment: Mr. Lion is a 62yo M with PMH of tobacco and alcohol abuse BIBEMS after being found slumped in a chair, found to have severe sepsis secondary to Proteus UTI and cellulitis. - Patient Problems (1) Severe sepsis Comment: - Patient met sepsis criteria on admission with tachycardia and leukocytosis, complicated by encephalopathy and WALT. - Source is Proteus UTI and multiple infected wounds with cellulitis. (2) Acute hypoxemic respiratory failure Comment: - Multifactorial in the setting of severe sepsis, spontaneous PTX, SVT - intubated on 07/06/17 and extubated 07/06/17. (3) Systolic CHF, acute Comment: - Respiratory distress again today - continue diuresis with Furosemide and add Aldactone. - Cardiology consult requested appreciated. - Despite multiple days of diuresis, his weight continues to trend up. Part of it is secondary to his low oncotic pressure associated with his severe malnutrition. (4) Spontaneous pneumothorax Comment: - S/p percutaneous chest tube placement by Surgery. - F/u CxR shows small residual right PTX - d/w Surgery - no indication for chest tube at this time. (5) Urinary tract infection due to Proteus Comment: - Present on admission, not Berkowitz catheter related. - ID input appreciated - will change Zosyn to Cefepime. - Repeat blood cultures show no growth. (6) Severe protein-calorie malnutrition Comment: - Patient has prealbumin 3, with poor wound healing. - Continue nutritional support. - Declines NGT placement. (7) Wounds and injuries Comment: - Patient has multiple unstageable wounds present on admission, spread on LE, ischium, sacral. - Wound care input appreciated. - Surgical consultation appreciated. - Patient could not tolerate [place] cath and with diuresis it is impossible to keep his wounds dry - keep Berkowitz catheter. (8) SVT (supraventricular tachycardia) Comment: - Rate is controlled now, but had episodes earlier today - continue Metoprolol. (9) Alcoholic cardiomyopathy Comment: - Echo showed EF 20% with global hypokinesis - likely ETOH related. (10) Alcohol abuse Comment: - No signs of withdrawal. - Continue thiamine. (11) Tobacco abuse Comment: - Nicotine supplementation PRN. (12) V-tach Comment: - Patient had 36 beats of Vtach earlier today, asymptomatic, likely a combination of his cardiomyopathy and hypokalemia. - Continue beta-nimco. (13) DVT prophylaxis Comment: - SQ heparin. (14) Full code status (15) End of life care Comment: - Dr. Raymond input appreciated - patient does not want anymore aggressive treatments and elects to be DNR/DNI. - Awaiting Hospice evaluation. Status and Disposition: Inpatient.
[2017-07-13] MEDS: Morphine INJ* 2 MG/ML 1 ML SYRINGE (TWO MG - NEW SYRINGE VERSION) IV PRN (03:39)
[2017-07-13] MEDS: Heparin VIAL(*) 5000 UNITS/ML VIAL (FIVE THOUSAND) SUBCUT SCH ×3 (06:36→21:15)
[2017-07-13] MEDS ORDERED: Furosemide IV* 10 MG/ML VIAL (40 MG) IV SLOW PU ONE (07:32)
[2017-07-13] MEDS: Spironolactone TAB* 25 MG PO SCH (08:01)
[2017-07-13] MEDS: Famotidine TAB* 20 MG PO SCH (08:01)
[2017-07-13] MEDS: Folic Acid TAB* 1 MG PO SCH (08:01)
[2017-07-13] MEDS: Morphine ORAL CONCENTRATE* 5 MG/0.25 ML ORAL.SYRIN SL PRN ×3 (08:01→21:14)
[2017-07-13] MEDS: Lisinopril TAB* 5 MG PO SCH (08:02)
[2017-07-13] MEDS: Metoprolol Tartrate TAB* 25 MG PO SCH ×2 (08:02→21:16)
[2017-07-13] MEDS: Multivitamins/Minerals TAB PO SCH (08:02)
[2017-07-13] MEDS: Thiamine TAB* 100 MG TAB PO SCH (08:02)
--- NOTE | 2017-07-13 08:54 | PN ---
Subjective Date of Service: 07/13/17 Interval History: HOSPITALIST PROGRESS NOTE Patient seen and examined at bedside. Offers no complaints at this time, even less talkative than before. Family History: Unchanged from Admission Social History: Unchanged from Admission Past Medical History: Unchanged from Admission Objective Active Medications: Acetaminophen (Tylenol Tab*) 650 mg PO Q4H PRN PRN Reason: PAIN Device (Nicotine Mouth Piece*) 1 each INH ONCE PRN PRN Reason: CRAVINGS Famotidine (Pepcid Tab*) 20 mg PO DAILY [facility] Last Admin: 07/13/17 08:01 Dose: 20 mg Folic Acid (Folvite Tab*) 1 mg PO DAILY [facility] Last Admin: 07/13/17 08:01 Dose: 1 mg Heparin Sodium (Porcine) (Heparin Vial(*)) 5,000 units SUBCUT Q8HR [facility] Last Admin: 07/13/17 06:36 Dose: 5,000 units Heparin Sodium (Porcine) (Heparin Flush Picc/Ml/Cvc(*)) 1 - 3 ml FLUSH 0600, 1800 [facility] PRN Reason: Protocol Last Admin: 07/13/17 06:34 Dose: 1 ml Cefepime HCl 1 gm/ Dextrose 50 mls @ 100 mls/hr IVPB Q12HR@1100,2300 [facility] Last Admin: 07/12/17 23:03 Dose: 100 mls/hr Lisinopril (Prinivil Tab*) 2.5 mg PO DAILY [facility] Last Admin: 07/13/17 08:02 Dose: 2.5 mg Lorazepam (Ativan Inj*) 1 mg IV PUSH Q4H PRN PRN Reason: AGITATION Metoprolol Tartrate (Lopressor Tab*) 25 mg PO BID [facility] Last Admin: 07/13/17 08:02 Dose: 25 mg Metoprolol Tartrate (Lopressor Iv*) 5 mg IV Q4HR PRN PRN Reason: BLOOD PRESSURE Last Admin: 07/12/17 14:01 Dose: 5 mg Morphine Sulfate (Morphine Inj (Syringe)*) 2 mg IV Q2H PRN PRN Reason: PAIN Last Admin: 07/13/17 03:39 Dose: 2 mg Morphine Sulfate (Morphine Oral Concentrate*) 5 mg SL Q2H PRN PRN Reason: Pain/Tachypnea RR>24 Last Admin: 07/13/17 08:01 Dose: 5 mg Multivitamins/Minerals (Theragran/Minerals Tab*) 1 tab PO DAILY [facility] Last Admin: 07/13/17 08:02 Dose: Not Given Nicotine (Nicotine Inhaler*) 10 mg INH Q2H PRN PRN Reason: CRAVING Ondansetron HCl (Zofran Inj*) 4 mg IV Q6H PRN PRN Reason: NAUSEA Spironolactone (Aldactone Tab*) 25 mg PO DAILY [facility] Last Admin: 07/13/17 08:01 Dose: 25 mg Thiamine HCl (Vitamin B-1 Tab*) 100 mg PO DAILY [facility] Last Admin: 07/13/17 08:02 Dose: 100 mg Vital Signs - 8 hr 07/13/17 07/13/17 07/13/17 01:59 03:37 03:39 Temperature 96.2 F Pulse Rate 110 Respiratory 22 24 Rate Blood Pressure 136/84 (mmHg) O2 Sat by Pulse 100 97 Oximetry 07/13/17 07/13/17 07/13/17 05:55 07:51 08:01 Temperature 99.4 F Pulse Rate 92 Respiratory 22 19 20 Rate Blood Pressure 134/76 (mmHg) O2 Sat by Pulse 100 Oximetry Oxygen Devices in Use Now: OxyMask - 8 liters Appearance: Frail disheveled male lying in bed in [facility]. Eyes: No Scleral Icterus Ears/Nose/Mouth/Throat: Mucous Membranes Moist Neck: Trachea Midline Respiratory: Symmetrical Chest Expansion and Respiratory Effort, - - BS+ bilaterally with bilateral crackles Cardiovascular: RRR - Normal S1 and S2 Extremities: - - Multiple wounds to bilateral LE and buttocks Neurological: Alert and Oriented x 3 Result Diagrams: 07/12/17 08:10 07/12/17 08:10 Assess/Plan/Problems-Billing Assessment: Mr. Lion is a 62yo M with PMH of tobacco and alcohol abuse BIBEMS after being found slumped in a chair, found to have severe sepsis secondary to Proteus UTI and cellulitis. - Patient Problems (1) Severe sepsis Comment: - Patient met sepsis criteria on admission with tachycardia and leukocytosis, complicated by encephalopathy and WALT. - Source is Proteus UTI and multiple infected wounds with cellulitis. (2) Acute hypoxemic respiratory failure Comment: - Multifactorial in the setting of severe sepsis, spontaneous PTX, SVT - intubated on 07/06/17 and extubated 07/06/17. (3) Systolic CHF, acute Comment: - Respiratory distress again today - continue diuresis with Furosemide and add Aldactone. - Cardiology consult requested appreciated. - Despite multiple days of diuresis, his symptoms persist. Part of it is secondary to his low oncotic pressure associated with his severe malnutrition. (4) Spontaneous pneumothorax Comment: - S/p percutaneous chest tube placement by Surgery. - F/u CxR shows small residual right PTX - d/w Surgery - no indication for chest tube at this time. (5) Urinary tract infection due to Proteus Comment: - Present on admission, not Berkowitz catheter related. - ID input appreciated - continue Cefepime. - Repeat blood cultures show no growth. (6) Severe protein-calorie malnutrition Comment: - Patient has prealbumin 3, with poor wound healing. - Continue nutritional support. - Declines NGT placement. - His BMI of 21 is falsely normal due to his significant edema. (7) Wounds and injuries Comment: - Patient has multiple unstageable wounds present on admission, spread on LE, ischium, sacral. - Wound care input appreciated. - Surgical consultation appreciated. - Patient could not tolerate [place] cath and with diuresis it is impossible to keep his wounds dry - keep Berkowitz catheter. (8) SVT (supraventricular tachycardia) Comment: - Continue Metoprolol. (9) Alcoholic cardiomyopathy Comment: - Echo showed EF 20% with global hypokinesis - likely ETOH related. (10) Alcohol abuse Comment: - No signs of withdrawal. - Continue thiamine. (11) Tobacco abuse Comment: - Nicotine supplementation PRN. (12) V-tach Comment: - Continue beta-nimco. (13) DVT prophylaxis Comment: - SQ heparin. (14) End of life care Comment: - Dr. Raymond input appreciated - patient does not want anymore aggressive treatments and elects to be DNR/DNI. - Awaiting SNF placement with Hospice. Status and Disposition: Inpatient.
[2017-07-13] MEDS: Cefepime(*) 1 GM in D5W 50 ML BAG* 50 ML IVPB SCH (12:48)
[2017-07-13] MEDS ORDERED: cefTRIAXone VIAL(*) 1,000 MG in NS 0.9% 50 ML* 50 ML IVPB SCH (17:00)
[2017-07-14] MEDS: Atropine 1% (ORAL/SL)* 15 ML BTL SL PRN ×7 (01:15→22:38)
[2017-07-14] MEDS: Morphine ORAL CONCENTRATE* 5 MG/0.25 ML ORAL.SYRIN SL PRN ×8 (01:17→22:36)
[2017-07-14] MEDS: Heparin VIAL(*) 5000 UNITS/ML VIAL (FIVE THOUSAND) SUBCUT SCH (05:32)
[2017-07-14] MEDS: Morphine INJ* 2 MG/ML 1 ML SYRINGE (TWO MG - NEW SYRINGE VERSION) IV PRN (08:08)
--- NOTE | 2017-07-14 09:37 | DS ---
CC: [facility], and [facility] Office. * DISCHARGE SUMMARY: DATE OF ADMISSION: 07/05/17. DATE OF DISCHARGE: 07/14/17. DISCHARGE DIAGNOSES: 1. Severe sepsis. 2. Acute hypoxemic respiratory failure. 3. Acute systolic congestive heart failure exacerbation. 4. Spontaneous pneumothorax. 5. Proteus septicemia with urinary tract infection. 6. Multiple infected wounds on lower extremities and buttocks (pressure ulcers present on admission). 7. Severe protein-calorie malnutrition. 8. Supraventricular tachycardia. 9. Ventricular tachycardia. 10. Alcoholic cardiomyopathy. 11. Alcoholism. 12. Tobacco abuse. MEDICATION LIST: 1. Acetaminophen 650 mg p.o. q. 4 hours p.r.n. pain or fever. 2. Atropine 1% two drops sublingual q. 40 minutes as needed for terminal secretions/sialorrhea. 3. Famotidine 20 mg p.o. daily. 4. Folic acid 1 mg p.o. daily. 5. Lisinopril 2.5 mg p.o. daily. 6. Metoprolol tartrate 25 mg p.o. b.i.d. 7. Morphine oral concentrate 5 mg sublingual q. 2 hours p.r.n. pain or tachypnea if respiratory rate greater than 24; MDD 60 mg. 8. Multivitamin 1 tablet p.o. daily. 9. Nicotine inhaler 10 mg inhaled q. 2 hours p.r.n. craving. 10. Spironolactone 25 mg p.o. daily. 11. Thiamine 100 mg p.o. daily. HOSPITAL COURSE: Mr. Lion is a 62-year-old male with a past medical history as stated above that was brought in by EMS to emergency room after being found slumped in his chair. 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 The patient reported that he had lower extremity wounds for approximately 11 months. As per the ED description, the patient had extensive wounds to the bilateral lower extremity all of which were covered with maggots. He was found to be septic with leukocytosis and bandemia. He was admitted under the impression of sepsis and initially the impression was the source was his wounds. The patient's condition declined and he was transferred to the intensive care unit where he required intubation for 2 days. He was found to have proteus in the blood and in the sputum and he was treated with antibiotics. The patient was found to be extremely malnourished with an prealbumin of less than 3. His BMI is still within normal limits due to his significant edema. The patient had a transthoracic echocardiogram that showed an ejection fraction of less than 20% with severe global hypokinesis of the left ventricle. He had multiple episodes of SVT and V-tach and medical management was attempted especially for diuresis, but the patient has not responded well to it. He was seen in consultation by Palliative Care (Dr. Raymond ) and at that point, the patient verbalized that he did not want anymore aggressive treatment. He wanted to be a DNR/DNI and at that point, the discharge plan became jail placement with hospice sign on. The patient will be discharged to [facility] today to be signed onto [email or web address] [place]. PHYSICAL EXAMINATION: Vital Signs: Temperature 97.7, heart rate 99, respiratory rate 28, oxygen saturation 91% on 8 L, blood pressure 82/48. General: The patient is a cachetic disheveled male, lying in bed, in no acute distress. CVS: Normal S1 and S2. Regular rate and rhythm. Chest: Breath sounds bilaterally with bibasilar crackles. Abdomen: Soft, bowel sounds are present. Extremities: The patient has edema of all extremities with multiple severe wounds on bilateral lower extremities and buttocks. Neurologic: He is alert, awake, oriented to self and place, very deconditioned. DIET: Regular diet for comfort. ACTIVITIES: As tolerated. DISPOSITION: [facility] with hospice. STATUS WHILE IN THE HOSPITAL: Inpatient. Please keep in mind that this is a summarized version of this patient's complex and prolonged hospital stay. If you need more information, please feel free to call me at [phone] or please obtain the full medical records. TIME SPENT: Approximately 45 minutes were spent to complete this discharge. [id number]/CPS #: [id number] MTDD
[2017-07-14] MEDS: Folic Acid TAB* 1 MG PO SCH (09:50)
[2017-07-14] MEDS: Famotidine TAB* 20 MG PO SCH (09:50)
[2017-07-14] MEDS: Spironolactone TAB* 25 MG PO SCH (09:51)
[2017-07-14] MEDS: Metoprolol Tartrate TAB* 25 MG PO SCH (09:51)
[2017-07-14] MEDS: Thiamine TAB* 100 MG TAB PO SCH (09:51)
[2017-07-14] MEDS: Lisinopril TAB* 5 MG PO SCH (09:51)
[2017-07-14] MEDS: Multivitamins/Minerals TAB PO SCH (09:51)
[2017-07-14] MEDS ORDERED: cefTRIAXone VIAL(*) 1,000 MG in D5W 50 ML BAG* 50 ML IVPB SCH (17:00)
[2017-07-15] MEDS: Morphine ORAL CONCENTRATE* 5 MG/0.25 ML ORAL.SYRIN SL PRN ×5 (01:07→17:52)
--- NOTE | 2017-07-15 08:51 | PN ---
Subjective Date of Service: 07/15/17 Interval History: HOSPITALIST PROGRESS NOTE Patient seen and examined at bedside. Lethargic, did not open eyes when called. Appears to be uncomfortable. Family History: Unchanged from Admission Social History: Unchanged from Admission Past Medical History: Unchanged from Admission Objective Active Medications: Atropine Sulfate (Atropine 1% (Oral/Sl)*) 2 drop SL Q30M PRN PRN Reason: SIALORRHEA Last Admin: 07/14/17 22:38 Dose: 2 drop Heparin Sodium (Porcine) (Heparin Flush Picc/Ml/Cvc(*)) 1 - 3 ml FLUSH 0600, 1800 [facility] PRN Reason: Protocol Last Admin: 07/15/17 06:01 Dose: 1 ml Lorazepam (Ativan Inj*) 1 mg IV PUSH Q4H PRN PRN Reason: AGITATION Lorazepam (Ativan Tab(*)) 1 mg SL Q4H PRN PRN Reason: Anxiety/Agitation Morphine Sulfate (Morphine Inj (Syringe)*) 2 mg IV Q2H PRN PRN Reason: PAIN Last Admin: 07/14/17 08:08 Dose: 2 mg Morphine Sulfate (Morphine Oral Concentrate*) 5 mg SL Q1H PRN PRN Reason: Pain/Tachypnea RR>24 Ondansetron HCl (Zofran Inj*) 4 mg IV Q6H PRN PRN Reason: NAUSEA Vital Signs - 8 hr 07/15/17 07/15/17 07/15/17 01:07 01:50 03:27 Temperature 97.4 F Pulse Rate 102 Respiratory 27 22 24 Rate Blood Pressure 102/80 (mmHg) O2 Sat by Pulse 73 Oximetry Oxygen Devices in Use Now: OxyMask - 5 liters Appearance: Elderly frail male lying in bed in NAD, but appears uncomfortable, frowning. Respiratory: Symmetrical Chest Expansion and Respiratory Effort, Clear to Auscultation Cardiovascular: RRR - Normal S1 and S2, tachy Neurological: - - Lethargic but arousable, doesn't follow commands Result Diagrams: 07/12/17 08:10 07/12/17 08:10 Assess/Plan/Problems-Billing Assessment: Mr. Lion is a 62yo M with PMH of tobacco and alcohol abuse BIBEMS after being found slumped in a chair, found to have severe sepsis secondary to Proteus UTI and cellulitis. - Patient Problems (1) Severe sepsis Comment: - Patient met sepsis criteria on admission with tachycardia and leukocytosis, complicated by encephalopathy and WALT. - Source is Proteus UTI and multiple infected wounds with cellulitis. (2) Acute hypoxemic respiratory failure Comment: - Multifactorial in the setting of severe sepsis, spontaneous PTX, SVT - intubated on 07/06/17 and extubated 07/06/17. (3) Systolic CHF, acute Comment: - Respiratory distress again today - continue diuresis with Furosemide and add Aldactone. - Cardiology consult requested appreciated. - Despite multiple days of diuresis, his symptoms persist. Part of it is secondary to his low oncotic pressure associated with his severe malnutrition. (4) Severe protein-calorie malnutrition Comment: - Patient has prealbumin 3, with poor wound healing. - Continue nutritional support. - Declines NGT placement. - His BMI of 21 is falsely normal due to his significant edema. (5) Alcoholic cardiomyopathy Comment: - Echo showed EF 20% with global hypokinesis - likely ETOH related. (6) End of life care Comment: - Dr. Raymond input appreciated - patient does not want anymore aggressive treatments and elects to be DNR/DNI. - Patient had significant worsening of his condition and not stable to transfer to SNF. - Continue comfort care measures in the hospital. Status and Disposition: Inpatient.
[2017-07-15] MEDS: Morphine INJ* 2 MG/ML 1 ML SYRINGE (TWO MG - NEW SYRINGE VERSION) IV PRN ×2 (09:05→11:01)
[2017-07-15] MEDS: LORazepam INJ* 2 MG/ML 1 ML VIAL IV PUSH PRN (09:13)
[2017-07-16] MEDS: LORazepam TAB(*) 1 MG SL PRN (01:15)
[2017-07-16] MEDS: Morphine ORAL CONCENTRATE* 5 MG/0.25 ML ORAL.SYRIN SL PRN ×6 (01:35→23:10)
[2017-07-16] MEDS: LORazepam INJ* 2 MG/ML 1 ML VIAL IV PUSH PRN (10:15)
--- NOTE | 2017-07-16 10:40 | PN ---
Progress Note - Progress Note Date of Service: 07/16/17 Note: Palliative care follow up note: Patient more alert today. Confused and restless. However he is asking for chicken noodle soup. Denies any SOB. Patient appears stable to be discharged to SNF with Hospice.
--- NOTE | 2017-07-16 15:45 | PN ---
Subjective Date of Service: 07/16/17 Interval History: HOSPITALIST PROGRESS NOTE Patient seen and examined at bedside. More awake today, requesting soup, denies dyspnea. Family History: Unchanged from Admission Social History: Unchanged from Admission Past Medical History: Unchanged from Admission Objective Active Medications: Atropine Sulfate (Atropine 1% (Oral/Sl)*) 2 drop SL Q30M PRN PRN Reason: SIALORRHEA Last Admin: 07/14/17 22:38 Dose: 2 drop Heparin Sodium (Porcine) (Heparin Flush Picc/Ml/Cvc(*)) 1 - 3 ml FLUSH 0600, 1800 [facility] PRN Reason: Protocol Last Admin: 07/16/17 05:47 Dose: 1 ml Lorazepam (Ativan Tab(*)) 1 mg SL Q4H PRN PRN Reason: Anxiety/Agitation Last Admin: 07/16/17 01:15 Dose: 1 mg Lorazepam (Ativan Inj*) 1 mg IV PUSH Q4H PRN PRN Reason: Agitation/Anxiety Last Admin: 07/16/17 10:15 Dose: 1 mg Morphine Sulfate (Morphine Inj (Syringe)*) 2 mg IV Q2H PRN PRN Reason: PAIN Last Admin: 07/15/17 11:01 Dose: 2 mg Morphine Sulfate (Morphine Oral Concentrate*) 5 mg SL Q1H PRN PRN Reason: Pain/Tachypnea RR>24 Last Admin: 07/16/17 09:43 Dose: 5 mg Ondansetron HCl (Zofran Inj*) 4 mg IV Q6H PRN PRN Reason: NAUSEA Vital Signs - 8 hr 07/16/17 07/16/17 07/16/17 08:00 09:42 09:43 Respiratory 20 20 22 Rate 07/16/17 07/16/17 07/16/17 10:15 11:55 15:02 Respiratory 26 20 20 Rate Oxygen Devices in Use Now: OxyMask - 5 liters Appearance: Elderly frail male appears older than stated age lying in bed in NAD. Ears/Nose/Mouth/Throat: Mucous Membranes Moist Neck: Trachea Midline Respiratory: Symmetrical Chest Expansion and Respiratory Effort, - - BS+ bilaterally with bibasilar crackles Cardiovascular: RRR - Normal S1 and S2 Neurological: - - More awake, Ox2 (self and place) Result Diagrams: 07/12/17 08:10 07/12/17 08:10 Assess/Plan/Problems-Billing Assessment: Mr. Lion is a 62yo M with PMH of tobacco and alcohol abuse BIBEMS after being found slumped in a chair, found to have severe sepsis secondary to Proteus UTI and cellulitis. - Patient Problems (1) Severe sepsis Comment: - Patient met sepsis criteria on admission with tachycardia and leukocytosis, complicated by encephalopathy and WALT. - Source is Proteus UTI and multiple infected wounds with cellulitis. (2) Acute hypoxemic respiratory failure Comment: - Multifactorial in the setting of severe sepsis, spontaneous PTX, SVT - intubated on 07/06/17 and extubated 07/06/17. (3) Systolic CHF, acute Comment: - Despite multiple days of diuresis, his dyspnea persists. Part of it is secondary to his low oncotic pressure associated with his severe malnutrition. (4) Severe protein-calorie malnutrition Comment: - Patient has prealbumin 3, with poor wound healing. - Continue nutritional support. - Declines NGT placement. - His BMI of 21 is falsely normal due to his significant edema. (5) Alcoholic cardiomyopathy Comment: - Echo showed EF 20% with global hypokinesis - likely ETOH related. (6) End of life care Comment: - Patient does not want anymore aggressive treatments and elects to be DNR/DNI. - He appears to be more stable today - will try to transfer to SNF with Hospice. Status and Disposition: Inpatient.
[2017-07-17] MEDS: Morphine ORAL CONCENTRATE* 5 MG/0.25 ML ORAL.SYRIN SL PRN ×6 (00:16→22:54)
[2017-07-17] MEDS: LORazepam TAB(*) 1 MG SL PRN (03:13)
[2017-07-17] MEDS: Morphine INJ* 2 MG/ML 1 ML SYRINGE (TWO MG - NEW SYRINGE VERSION) IV PRN ×3 (05:26→22:53)
--- NOTE | 2017-07-17 12:34 | PN ---
Subjective Date of Service: 07/17/17 Interval History: Patient reports poor appetite. Ate a few bites this morning. Nursing reports some diarrhea. Denies abdominal pain. Denies dyspnea, CP. Family History: Unchanged from Admission Social History: Unchanged from Admission Past Medical History: Unchanged from Admission Objective Active Medications: Atropine Sulfate (Atropine 1% (Oral/Sl)*) 2 drop SL Q30M PRN PRN Reason: SIALORRHEA Last Admin: 07/14/17 22:38 Dose: 2 drop Heparin Sodium (Porcine) (Heparin Flush Picc/Ml/Cvc(*)) 1 - 3 ml FLUSH 0600, 1800 PEGGY PRN Reason: Protocol Last Admin: 07/17/17 06:10 Dose: 1 ml Lorazepam (Ativan Tab(*)) 1 mg SL Q4H PRN PRN Reason: Anxiety/Agitation Last Admin: 07/17/17 03:13 Dose: 1 mg Lorazepam (Ativan Inj*) 1 mg IV PUSH Q4H PRN PRN Reason: Agitation/Anxiety Last Admin: 07/16/17 10:15 Dose: 1 mg Morphine Sulfate (Morphine Inj (Syringe)*) 2 mg IV Q2H PRN PRN Reason: PAIN Last Admin: 07/17/17 05:26 Dose: 2 mg Morphine Sulfate (Morphine Oral Concentrate*) 5 mg SL Q1H PRN PRN Reason: Pain/Tachypnea RR>24 Last Admin: 07/17/17 05:25 Dose: 5 mg Ondansetron HCl (Zofran Inj*) 4 mg IV Q6H PRN PRN Reason: NAUSEA Vital Signs - 8 hr 07/17/17 07/17/17 07/17/17 05:25 05:26 08:00 Respiratory 24 24 22 Rate 07/17/17 07/17/17 08:54 08:55 Respiratory 20 20 Rate Oxygen Devices in Use Now: Nasal Cannula Appearance: No distress, somnolent Ears/Nose/Mouth/Throat: - - poor dentition Neck: Trachea Midline Respiratory: Clear to Auscultation Cardiovascular: NL Sounds; No Murmurs; No JVD, RRR Abdominal: NL Sounds; No Tenderness; No Distention, No Hepatosplenomegaly Lymphatic: No Cervical Adenopathy Extremities: - - dressings on ankles and shins bilat, RT 1st and 2nd toes w/ gangrene distally Lines/Tubes/Other Access: Clean, Dry and Intact Peripheral IV Result Diagrams: 07/12/17 08:10 07/12/17 08:10 Microbiology and Other Data: Microbiology 07/11/17 02:34 Stool Stool Gross Appearance - Final 07/11/17 02:34 Stool C. difficile DNA Amplification - Final 027 Presumptive NEGATIVE Toxigenic C.diff NEGATIVE 07/10/17 08:48 Blood Venous Blood Culture - Final No Growth Day 5 07/10/17 05:59 Blood Venous Aerobic Blood Culture - Final 07/10/17 05:59 Blood Venous Anaerobic Blood Culture - Final No Growth Day 5 No Growth Day 5 07/06/17 04:35 Sputum Trach Gram Stain - Final 07/06/17 04:35 Sputum Trach Sputum Culture - Final Proteus Mirabilis Normal Michelle 07/05/17 20:43 Leg Left Skin and Soft Tissue MRSA/MSSA (PCR - Final 07/05/17 20:43 Leg Left Wound Culture - Final Mrsa Negative S.aureus Positive Enterococcus Faecalis Klebsiella Oxytoca Proteus Penneri Assess/Plan/Problems-Billing Assessment: Mr. Lion is a 62yo M with PMH of tobacco and alcohol abuse BIBEMS after being found slumped in a chair, found to have severe sepsis secondary to Proteus UTI and cellulitis. - Patient Problems (1) Severe sepsis Current Visit: Yes Status: Acute Priority: Medium Code(s): A41.9 - SEPSIS , UNSPECIFIED ORGANISM; R65.20 - SEVERE SEPSIS WITHOUT SEPTIC SHOCK SNOMED Code(s): 02671380 Comment: - Patient met sepsis criteria on admission with tachycardia and leukocytosis, complicated by encephalopathy and WALT. - Source is Proteus UTI and multiple infected wounds with cellulitis. - now finished antibiotic treatment, ID consult appreciated, doing well w/o antibiotics (2) Severe protein-calorie malnutrition Current Visit: Yes Status: Acute Priority: Medium Code(s): E43 - UNSPECIFIED SEVERE PROTEIN-CALORIE MALNUTRITION SNOMED Code(s): 893976030 Comment: - Patient has prealbumin 3, with poor wound healing. - Continue nutritional support. - Declines NGT placement. - His BMI of 21 is falsely normal due to his significant edema. - may have GI malignancy as cause of anorexia, malnutrition, will arrange CT scan for prognosis if patient can consent to this. (3) Systolic CHF, acute Current Visit: Yes Status: Acute Priority: Medium Code(s): I50.21 - ACUTE SYSTOLIC (CONGESTIVE) HEART FAILURE SNOMED Code(s): 764717466 Comment: - Compensating better now, since sepsis resolved. - Part of it is secondary to his low oncotic pressure associated with his severe malnutrition. (4) DVT prophylaxis Current Visit: Yes Status: Acute Priority: Low Code(s): JGS5288 - SNOMED Code(s): 286781153 Comment: - SQ heparin. Status and Disposition: Inpatient, planning for discharge to SNF possible hospice
[2017-07-18] MEDS: Morphine ORAL CONCENTRATE* 5 MG/0.25 ML ORAL.SYRIN SL PRN ×10 (00:26→20:38)
[2017-07-18 00:55] VITALS: BP 141/59
[2017-07-18] MEDS: Morphine INJ* 2 MG/ML 1 ML SYRINGE (TWO MG - NEW SYRINGE VERSION) IV PRN ×5 (01:48→20:39)
[2017-07-18] MEDS: LORazepam TAB(*) 1 MG SL PRN ×2 (08:06→20:37)
[2017-07-18] MEDS: Atropine 1% (ORAL/SL)* 15 ML BTL SL PRN (08:08)
--- NOTE | 2017-07-18 08:51 | PN ---
Subjective Date of Service: 07/18/17 Interval History: Patient eating about 20-30% of meals, had 1/2 Ensure yesterday. He is answering questions w/ short answers. He does not know why he is so thin, he does not want this investigated. Has pain in legs and buttocks w/ dressing changes. Family History: Unchanged from Admission Social History: Unchanged from Admission Past Medical History: Unchanged from Admission Objective Active Medications: Atropine Sulfate (Atropine 1% (Oral/Sl)*) 2 drop SL Q30M PRN PRN Reason: SIALORRHEA Last Admin: 07/18/17 08:08 Dose: 2 drop Heparin Sodium (Porcine) (Heparin Flush Picc/Ml/Cvc(*)) 1 - 3 ml FLUSH 0600, 1800 PEGGY PRN Reason: Protocol Last Admin: 07/18/17 05:55 Dose: 1 ml Lorazepam (Ativan Tab(*)) 1 mg SL Q4H PRN PRN Reason: Anxiety/Agitation Last Admin: 07/18/17 08:06 Dose: 1 mg Lorazepam (Ativan Inj*) 1 mg IV PUSH Q4H PRN PRN Reason: Agitation/Anxiety Last Admin: 07/16/17 10:15 Dose: 1 mg Morphine Sulfate (Morphine Inj (Syringe)*) 2 mg IV Q2H PRN PRN Reason: PAIN Last Admin: 07/18/17 07:03 Dose: 2 mg Morphine Sulfate (Morphine Oral Concentrate*) 5 mg SL Q1H PRN PRN Reason: Pain/Tachypnea RR>24 Last Admin: 07/18/17 08:06 Dose: 5 mg Ondansetron HCl (Zofran Inj*) 4 mg IV Q6H PRN PRN Reason: NAUSEA Vital Signs - 8 hr 07/18/17 07/18/17 07/18/17 01:45 01:48 04:20 Respiratory 24 24 24 Rate 07/18/17 07/18/17 07/18/17 04:22 05:55 06:56 Respiratory 24 24 30 Rate 07/18/17 07/18/17 07:03 08:06 Respiratory 30 30 Rate Oxygen Devices in Use Now: None Appearance: awake, no distress Ears/Nose/Mouth/Throat: - - poor dentition Neck: Trachea Midline Respiratory: Clear to Auscultation Cardiovascular: NL Sounds; No Murmurs; No JVD Abdominal: NL Sounds; No Tenderness; No Distention Neurological: - - awake, cooperative Lines/Tubes/Other Access: Clean, Dry and Intact Peripheral IV Nutrition: Taking PO's Result Diagrams: 07/12/17 08:10 07/12/17 08:10 Microbiology and Other Data: Microbiology 07/11/17 02:34 Stool Stool Gross Appearance - Final 07/11/17 02:34 Stool C. difficile DNA Amplification - Final 027 Presumptive NEGATIVE Toxigenic C.diff NEGATIVE 07/10/17 08:48 Blood Venous Blood Culture - Final No Growth Day 5 07/10/17 05:59 Blood Venous Aerobic Blood Culture - Final 07/10/17 05:59 Blood Venous Anaerobic Blood Culture - Final No Growth Day 5 No Growth Day 5 07/06/17 04:35 Sputum Trach Gram Stain - Final 07/06/17 04:35 Sputum Trach Sputum Culture - Final Proteus Mirabilis Normal Michelle 07/05/17 20:43 Leg Left Skin and Soft Tissue MRSA/MSSA (PCR - Final 07/05/17 20:43 Leg Left Wound Culture - Final Mrsa Negative S.aureus Positive Enterococcus Faecalis Klebsiella Oxytoca Proteus Penneri Assess/Plan/Problems-Billing Assessment: Mr. Lion is a 62yo M with PMH of tobacco and alcohol abuse BIBEMS after being found slumped in a chair, found to have severe sepsis secondary to Proteus UTI and cellulitis. - Patient Problems (1) Severe sepsis Current Visit: Yes Status: Acute Priority: Medium Code(s): A41.9 - SEPSIS , UNSPECIFIED ORGANISM; R65.20 - SEVERE SEPSIS WITHOUT SEPTIC SHOCK SNOMED Code(s): 53215998 Comment: - Patient had sepsis due to proteus on admission, treated w/ source control and antibiotics - now finished antibiotic treatment, ID consult appreciated, doing well w/o antibiotics (2) Severe protein-calorie malnutrition Current Visit: Yes Status: Acute Priority: Medium Code(s): E43 - UNSPECIFIED SEVERE PROTEIN-CALORIE MALNUTRITION SNOMED Code(s): 813539183 Comment: - Patient has prealbumin 3, with poor wound healing. - Continue nutritional support. - Discussed with surrogate friend Sky, he wants no invasive testing or treatment - may have GI malignancy as cause of anorexia, malnutrition, would need CT scan if further workup needed (3) Systolic CHF, acute Current Visit: Yes Status: Acute Priority: Medium Code(s): I50.21 - ACUTE SYSTOLIC (CONGESTIVE) HEART FAILURE SNOMED Code(s): 097099925 Comment: - Compensating better now, since sepsis resolved. May have kwashiorkor as cause of LV dysfunction - on comfort measure only (4) DVT prophylaxis Current Visit: Yes Status: Acute Priority: Low Code(s): ODJ2849 - SNOMED Code(s): 968629069 Comment: - SQ heparin. Status and Disposition: Inpatient, planning for discharge to SNF and/or possibly hospice
[2017-07-18] MEDS: LORazepam INJ* 2 MG/ML 1 ML VIAL IV PUSH PRN (11:49)
[2017-07-19] MEDS: Morphine INJ* 2 MG/ML 1 ML SYRINGE (TWO MG - NEW SYRINGE VERSION) IV PRN ×3 (01:04→05:24)
[2017-07-19] MEDS: Morphine ORAL CONCENTRATE* 5 MG/0.25 ML ORAL.SYRIN SL PRN ×4 (01:05→05:04)
[2017-07-19] MEDS: LORazepam INJ* 2 MG/ML 1 ML VIAL IV PUSH PRN ×2 (01:12→05:14)
--- NOTE | 2017-07-20 13:13 | DS ---
DISCHARGE SUMMARY/ NOTE: DATE OF ADMISSION: 07/05/17 DATE OF : 07/19/17 PRIMARY CARE PROVIDER: The patient has no primary care provider. DISCHARGE DIAGNOSES: 1. [id number] hypoxemic respiratory failure. 2. Acute systolic congestive heart failure exacerbation. 3. Alcohol-induced cardiomyopathy. 4. Severe protein-calorie malnutrition. 5. Alcohol abuse. 6. Severe sepsis, present on admission, associated with encephalopathy and acute kidney injury secondary to Proteus urinary tract infection and multiple infected wounds with cellulitis. 7. Spontaneous pneumothorax. 8. Bilateral sacral and ischial unstageable decubiti, present on admission. 9. Supraventricular tachycardia. 10. Ventricular tachycardia. 11. Tobacco abuse. HOSPITAL COURSE: Mr. Lion was a 62-year-old male with a past medical history as stated above that was found slumped over in his chair by a friend on the day of admission. As per HPI, the patient had a long-term problem with alcohol and he used to drink 4 to 5 of 24-ounce beers per day and was also a heavy smoker. It was unclear for how long he was sitting on the chair, but the patient said that he was there for 3 days. The H and P also notes progressive decline in his condition over the past year with multiple lower extremity wounds that were described as extensive leg wounds to bilateral lower extremities, all of which were covered with maggots. For more details about his presentation, I refer you to his history and physical. The patient developed a spontaneous pneumothorax and required percutaneous right pneumothorax catheter insertion by Dr. Agosto. He was admitted to the intensive care unit and a transthoracic echocardiogram revealed severely decreased left ventricular systolic function with an ejection fraction of less than 20%, severe global hypokinesis with moderate aortic stenosis. The patient was also noted to have severe sepsis and there were multiple sources including Proteus UTI and multiple wound infection. He was treated empirically with Zosyn and later on the blood culture was also positive for Proteus. The patient had improvement of his infection, but his overall condition remained very poor. He had repeat episodes of acute pulmonary edema requiring aggressive diuresis and after multiple conversations and evaluation by Palliative Care, the patient elected to be a [id number] , and the plan was for him to be discharged to [facility] with hospice sign on. Unfortunately, the patient's condition continued to decline and he was felt to be too unstable for transportation. The patient on 07/20/17 at 9:20 a.m. Initially his requested an autopsy, but after talking to other family members she changed her mind. Please keep in mind this is a summarized version of this patient's hospital stay. If you need more information, please feel free to call me at [phone] or please obtain the full medical records. TIME SPENT: Approximately 40 minutes were spent to complete the discharge. [id number]/[facility] #: [id number] ELIANA
== END 2017-07-19 09:20 | disposition expired | DRG 720 ==
LOC: ED 17:08 → ICU 19:40 → MEDTELE 07-08 18:13
PROVIDERS: ADMIT Pediatrics; ATTEND Internal Medicine
PROC: 02HV33Z Insertion of Infusion Device into Superior Vena Cava, Percutaneous Approach (ICD-10-PCS; principal; 2017-07-06)
PROC: 0BH17EZ Insertion of Endotracheal Airway into Trachea, Via Natural or Artificial Opening (ICD-10-PCS; 2017-07-06)
PROC: 5A1935Z Respiratory Ventilation, Less than 24 Consecutive Hours (ICD-10-PCS; 2017-07-06)
PROC: 0W9930Z Drainage of Right Pleural Cavity with Drainage Device, Percutaneous Approach (ICD-10-PCS; 2017-07-06)
PROC: 30233N1 Transfusion of Nonautologous Red Blood Cells into Peripheral Vein, Percutaneous Approach (ICD-10-PCS; 2017-07-06)
PROC: 0BP1XDZ Removal of Intraluminal Device from Trachea, External Approach (ICD-10-PCS; 2017-07-06)
DX: A41.89 Other specified sepsis (principal); G93.41 Metabolic encephalopathy; J96.21 Acute and chronic respiratory failure with hypoxia; I47.2 Ventricular tachycardia; I50.23 Acute on chronic systolic (congestive) heart failure; E43 Unspecified severe protein-calorie malnutrition; L89.150 Pressure ulcer of sacral region, unstageable; I47.1 Supraventricular tachycardia; I42.6 Alcoholic cardiomyopathy; N17.9 Acute kidney failure, unspecified; N39.0 Urinary tract infection, site not specified; L03.116 Cellulitis of left lower limb; L03.115 Cellulitis of right lower limb; E87.2 Acidosis; J93.83 Other pneumothorax; R65.20 Severe sepsis without septic shock; I73.9 Peripheral vascular disease, unspecified; E87.5 Hyperkalemia; I77.819 Aortic ectasia, unspecified site; I08.0 Rheumatic disorders of both mitral and aortic valves; R54 Age-related physical debility; B96.4 Proteus (mirabilis) (morganii) as the cause of diseases classified elsewhere; F10.20 Alcohol dependence, uncomplicated; R74.8 Abnormal levels of other serum enzymes; F17.210 Nicotine dependence, cigarettes, uncomplicated; Y90.9 Presence of alcohol in blood, level not specified; L89.620 Pressure ulcer of left heel, unstageable; L89.320 Pressure ulcer of left buttock, unstageable; L89.310 Pressure ulcer of right buttock, unstageable; Z68.21 Body mass index [BMI] 21.0-21.9, adult; Z56.0 Unemployment, unspecified
CPT/HCPCS: 36415; 36600; 71010; 80048; 80053; 80307; 80320; 81003; 81015; 82140; 82272; 82550; 82570; 82803; 83036; 83605; 83735; 83880; 84100; 84134; 84300; 84443; 84484; 85025; 85027; 85060; 85384; 85610; 85652; 85730; 86140; 86703; 86850; 86900; 86901; 86922; 87040; 87070; 87077; 87086; 87184; 87186; 87205; 87493; 87640; 87641; 93005; 93306; 94002; 94003; 94760; A9270-GY; C1751; C8929; G0480; J0153; J0330; J0610; J0692; J0696; J1160; J1644; J1940; J2060; J2270; J2543; J2704; J3010; J3370; J3411; J3475; J3480; J3490; P9040